=== PATIENT | male | born 1955 | race Caucasian/White ===

== ENCOUNTER 2018-05-10 23:38 | Emergency (ER) | payer MEDICARE, MEDICAID ==
[2018-05-11 00:25] LABS: ABSOLUTE BASOPHILS # (AUTO) 0.1 10^3/uL (0.0-0.2); ABSOLUTE EOSINOPHILS # (AUTO) 0.1 10^3/uL (0.0-0.6); ABSOLUTE LYMPHOCYTES (AUTO) 1.5 10^3/uL (0.5-4.7); ABSOLUTE MONOCYTES (AUTO) 0.8 10^3/uL (0.1-1.4); ABSOLUTE NEUT (AUTO) 7.9 10^3/uL (1.7-8.2); BASOPHILS % (AUTO) 0.7 % (0-2); EOSINOPHILS % (AUTO) 0.5 % (0-6); HEMATOCRIT 52.9 % (37.9-51.0); HEMOGLOBIN 18.4 g/dL (13.5-17.0); LYMPHOCYTES % (AUTO) 14.8 % (13-45); MEAN CORPUSCULAR HEMOGLOBIN 27.7 pg (27.0-33.4); MEAN CORPUSCULAR HGB CONC 34.8 g/dL (32.0-36.0); MEAN CORPUSCULAR VOLUME 80 fl (80-97); MONOCYTES % (AUTO) 7.7 % (3-13); PLATELET COUNT 288 10^3/uL (150-450); RED BLOOD COUNT 6.65 10^6/uL (4.35-5.55); RED CELL DISTRIBUTION WIDTH 14.8 % (11.5-14.0); SEGMENTED NEUTROPHILS % (AUTO) 76.3 % (42-78); TOTAL CELLS COUNTED % (AUTO) 100 %; WHITE BLOOD COUNT 10.3 10^3/uL (4.0-10.5)
[2018-05-11 00:40] LABS: ALANINE AMINOTRANSFERASE 29 U/L (21-72); ALBUMIN 4.5 g/dL (3.5-5.0); ALKALINE PHOSPHATASE 75 U/L (38-126); ANION GAP 14 (5-19); ASPARTATE AMINO TRANSFERASE 25 U/L (17-59); BILIRUBIN,DIRECT 0.5 mg/dL (0.0-0.4); BILIRUBIN,TOTAL 1.3 mg/dL (0.2-1.3); BLOOD UREA NITROGEN 20 mg/dL (7-20); CALCIUM 9.8 mg/dL (8.4-10.2); CARBON DIOXIDE 21 mmol/L (22-30); CHLORIDE 104 mmol/L (98-107); GLUCOSE 105 mg/dL (75-110); POTASSIUM 3.9 mmol/L (3.6-5.0); SODIUM 139.3 mmol/L (137-145)
[2018-05-11] MEDS ORDERED: NORMAL SALINE 1000 ML 1,000 ML IV ONE (03:48)
--- NOTE | 2018-05-11 03:54 | ER Document Report ---
ED Neuro Symptoms/Deficit - General TRAVEL OUTSIDE OF THE [place] IN LAST 30 DAYS: No <BEAU CURRAN - Last Filed: 05/11/18 08:05> <EILEENISSAC Jocelyn - Last Filed: 05/11/18 10:17> - General Chief Complaint: Tremor Stated Complaint: BODY TWITCH,CRAMPING,PAIN Time Seen by Provider: 05/11/18 03:38 Primary Care Provider: KOREY WESLEY MD [ACTIVE STAFF] - Follow up as needed Notes: Patient is a 62-year-old male that comes to the Emergency Department for w eakness of the left arm and leg. Patient states that approximately 36 hours ago he was walking back to his chair and he suddenly had a weakness in the left side of his body, he states that he collapsed against his chair without injury, he states that he could not walk, he was stuck in his chair, he states he could not open his phone because his left hand was not working properly. Eventually his sister came over to his house, found him unable to get up, and called the ambulance. He states he is starting to get a headache. He states he has not had anything to eat or drink in 36 hours. He denies chest pain, vomiting, visual changes, difficulty breathing, fever, or any pain from the fall. Past medical history of hyperlipidemia, BPH, smoker. He used to take medications for hyperlipidemia but has not for some time. He does not currently take any medications or see a primary care provider. His sister is at bedside. (BEAU CURRAN) - Related Data Allergies/Adverse Reactions: aspirin Allergy (Verified 05/10/18 23:48) Penicillins Allergy (Verified 05/10/18 23:48) Past Medical History - General Information source: Patient - Social History Smoking Status: Current Every Day Smoker Frequency of alcohol use: None Drug Abuse: None Lives with: Alone Family History: Reviewed & Not Pertinent - Past Medical History Cardiac Medical History: Reports: Hx Hypercholesterolemia <BEAU CURRAN - Last Filed: 05/11/18 08:05> Review of Systems - Review of Systems Constitutional: See HPI EENT: No symptoms reported Cardiovascular: No symptoms reported Respiratory: No symptoms reported Gastrointestinal: No symptoms reported Genitourinary: No symptoms reported Male Genitourinary: No symptoms reported Musculoskeletal: See HPI Skin: No symptoms reported Hematologic/Lymphatic: No symptoms reported Neurological/Psychological: See HPI <BEAU CURRAN - Last Filed: 05/11/18 08:05> Physical Exam <BEAU CURRAN - Last Filed: 05/11/18 08:05> - Vital signs Vitals: Temp Pulse Resp BP Pulse Ox 97.8 F 85 18 151/108 H 98 05/10/18 23:49 05/10/18 23:49 05/10/18 23:49 05/10/18 23:49 05/10/18 23:49 - Notes Notes: GENERAL: Very unkempt, however he is alert and conversational HEAD: Normocephalic, atraumatic. EYES: Pupils equal, round, and reactive to light. Extraocular movements intact. ENT: Oral mucosa dry, tongue midline. Oropharynx unremarkable. Airway patent. Nares patent, no nasal septal hematoma, TM's intact. NECK: Full range of motion. Supple. Trachea midline. LUNGS: Clear to auscultation bilaterally, no wheezes, rales, or rhonchi. No respiratory distress. HEART: Regular rate and rhythm. No murmur ABDOMEN: Soft, non-tender. Non-distended. Bowel sounds present in all 4 quadrants. GENITOURINARY: Deferred EXTREMITIES: Moves all 4 extremities spontaneously. No edema, normal radial and dorsalis pedis pulses bilaterally. No cyanosis. BACK: no cervical, thoracic, lumbar midline tenderness. No saddle anesthesia, normal distal neurovascular exam. NEUROLOGICAL: Alert and oriented x3. Normal speech. Left sided weakness including left shrimper, pronator drift, difficulty performing finger to nose exam. Difficulty holding left leg up above the bed against gravity. Right side is normal. No facial droop. No facial palsy. Remaining neurological exam is normal, cranial nerves intact. PSYCH: Normal affect, normal mood. SKIN: Warm, dry, normal turgor. No rashes or lesions noted. (BEAU CURRAN) Course - Laboratory Result Diagrams: 05/10/18 23:59 05/10/18 23:59 <BEAU CURRAN - Last Filed: 05/11/18 08:05> - Laboratory Result Diagrams: 05/10/18 23:59 05/10/18 23:59 <ISSAC ARELLANO - Last Filed: 05/11/18 10:17> - Re-evaluation Re-evalutation: Patient with obvious left-sided deficits. He cannot shrimper with his left hand, he has obvious pronator drift, difficulty holding his arm up against gravity, difficulty with finger to nose testing. He also has left lower extremity weakness, difficulty holding the leg up against gravity. He states he cannot walk, declined getting up to attempt this. He also states he has a mild headache. Patient was immediately sent to CAT scan. CBC unremarkable except for elevated hemoglobin at 18.4, chemistry nonspecific and unremarkable. Troponin negative. Patient given IV fluids because of not being able to eat or drink today reportedly. Radiologist called, reports either right parieto-occipital mass with vasogenic edema versus hematoma. Patient is not on a blood thinner, he did not have tra joselyn reportedly. Ordering dexamethasone for possible edema. Discussed with patient. Discussed with Dr. Burrows. We do not have neurosurgery at this facility. For this reason we will attempt to transfer the patient. Discussed with patient, [facility] will be contacted. 05/11/18 04:50 Called [facility] transfer center, pending call back 05/11/18 05:05 Spoke to BACILIO Liu for the ICU, recommends I speak to the neurosurgery. 05/11/18 05:[address] Foss (neurosurgery) and Michelle RIBERA from ICU, patient accepted for transfer. Accepting physician is Dr. Matias. Blood pressures 150s systolic, no additional recommendations given in regards to this. 05/11/18 08:05 Patient introduced to Abril BYRNE at bedside handoff. Patient is actually moving his left arm better than before, and he wanted to show this to us. No significant change otherwise. Transport should be here within the hour. (BEAU CURRAN) Bedside report given by LAURA Garcia. Patient evaluated at bedside is moving his left arm much better. Vitals are stable. Patient afebrile in any distress. Is awaiting for transport to [facility] by ground ambulance. Ground transport at bedside, blood pressure 150 over 90s no distress, and afebrile. Patient states left arm pain is much better. Vision is stable for transfer via ground ambulance. (ISSAC ARELLANO) - Vital Signs Vital signs: Temp Pulse Resp BP Pulse Ox 97.8 F 75 10 L 142/83 H 94 05/10/18 23:49 05/11/18 05:00 05/11/18 08:01 05/11/18 08:00 05/11/18 08:01 - Laboratory Laboratory results interpreted by me: 05/10/18 05/10/18 05/11/18 23:59 23:59 05:50 RBC 6.65 H Hgb 18.4 H Hct 52.9 H RDW 14.8 H Carbon Dioxide 21 L Direct Bilirubin 0.5 H Urine Ketones 20 H Urine Urobilinogen 4.0 H Discharge <BEAU CURRAN - Last Filed: 05/11/18 08:05> <ISSAC ARELLANO - Last Filed: 05/11/18 10:17> - Discharge Clinical Impression: Left-sided weakness, Abnormal brain CT Condition: Stable Disposition: [facility] Referrals: KOREY WESLEY MD [ACTIVE STAFF] - Follow up as needed
--- NOTE | 2018-05-11 04:34 | RADIOLOGY REPORT (SQ) ---
EXAM DESCRIPTION: CT HEAD WITHOUT IV CONTRAST COMPLETED DATE/TME: 05/11/2018 03:47 CLINICAL HISTORY: 62 years, Male, left sided weakness COMPARISON: None. TECHNIQUE: Axial CT images of the brain were obtained without contrast. Sagittal and coronal reformats were performed. DL [id number] Images stored on PACS. All CT scanners at this facility use dose modulation, iterative reconstruction, and/or weight based dosing when appropriate to reduce radiation dose to as low as reasonably achievable (ALARA). [facility]: Dose Right [facility]: CareDose [facility]: Dose Right [facility]: Teradose 4D [facility]: Smart Technologies LIMITATIONS: None. FINDINGS: There is a 1.9 cm rounded hyperdensity near the right parieto-occipital lobe with surrounding vasogenic edema. There is no midline shift, herniation, hydrocephalus, or extra-axial fluid collection. The paranasal sinuses and mastoid air cells are clear. There is no acute fracture. IMPRESSION: Hyperdense mass within the right parieto-occipital lobe with surrounding vasogenic edema. This may represent a hematoma or neoplasm. Further evaluation with an MRI with contrast is recommended. TECHNICAL DOCUMENTATION: Quality ID # 436: Final reports with documentation of one or more dose reduction techniques (e.g., Automated exposure control, adjustment of the mA and/or kV according to patient size, use of iterative reconstruction technique) copyright 2011 [employer]- All Rights Reserved
--- NOTE | 2018-05-11 04:36 | RADIOLOGY REPORT (SQ) ---
Chest single view on 05/11/2018 at 4:21 AM CLINICAL INDICATION: Left-sided weakness, stroke COMPARISON: None FINDINGS: There is trace right pleural effusion versus pleural thickening. Lungs are otherwise clear. Cardiac, hilar and mediastinal contours are within normal limits. Pulmonary vascularity is within normal limits. There is mild dextroscoliosis of the thoracic spine. No acute bony abnormality is noted. IMPRESSION: No active disease.
[2018-05-11] MEDS ORDERED: DEXAMETHASONE SOD PHOS INJ 10 MG/1 ML VIAL IV ONE ×2 (04:41→05:30)
[2018-05-11] MEDS ORDERED: ACETAMINOPHEN 325 MG TABLET PO ONE (04:51)
[2018-05-11 06:30] LABS: APPEARANCE,URINE SLIGHTLY-CLOUDY; BILIRUBIN,URINE NEGATIVE (NEGATIVE); COLOR,URINE AMBER; GLUCOSE, URINE NEGATIVE (NEGATIVE); KETONES,URINE 20 mg/dL (NEGATIVE); LEUKOCYTE ESTERASE,URINE NEGATIVE (NEGATIVE); NITRITE,URINE NEGATIVE (NEGATIVE); PROTEIN,URINE NEGATIVE (NEGATIVE); URINE SPECIFIC GRAVITY 1.028
[2018-05-11 10:25] VITALS: BP 171/101
--- NOTE | 2018-05-11 11:07 | EKG REPORT ---
SEVERITY:- ABNORMAL ECG - SINUS RHYTHM RIGHT BUNDLE BRANCH BLOCK PROBABLE INFERIOR INFARCT, OLD : Confirmed by: Carolina Acuña MD 11-May-2018 11:06:38
== END 2018-05-11 10:30 | disposition short-term general hospital (02) ==
LOC: ER 23:38
DX: R53.1 Weakness (principal); R93.0 Abnormal findings on diagnostic imaging of skull and head, not elsewhere classified; F17.200 Nicotine dependence, unspecified, uncomplicated; E78.00 Pure hypercholesterolemia, unspecified; Z88.0 Allergy status to penicillin; Z88.6 Allergy status to analgesic agent
CPT/HCPCS: 93005; 99285; 96361; 96374; 36415; 82550; 83735; 85025; 80053; 81001; 84484; 71045; 70450; 93010; A9270; J7030; J1100

== ENCOUNTER 2018-08-13 10:25 | Observation (INO) | payer MEDICARE, MEDICAID ==
[2018-08-13 11:04] LABS: HEMATOCRIT 49.1 % (37.9-51.0); HEMOGLOBIN 16.9 g/dL (13.5-17.0); MEAN CORPUSCULAR HEMOGLOBIN 27.2 pg (27.0-33.4); MEAN CORPUSCULAR HGB CONC 34.4 g/dL (32.0-36.0); MEAN CORPUSCULAR VOLUME 79 fl (80-97); PLATELET COUNT 279 10^3/uL (150-450); RED BLOOD COUNT 6.21 10^6/uL (4.35-5.55); RED CELL DISTRIBUTION WIDTH 14.7 % (11.5-14.0); WHITE BLOOD COUNT 10.1 10^3/uL (4.0-10.5)
[2018-08-13 11:06] LABS: INTERNATIONAL RATION (INR) 0.94
[2018-08-13 11:07] LABS: PARTIAL THROMBOPLASTIN TIME 41.8 SEC (23.5-35.8)
--- NOTE | 2018-08-13 11:08 | RADIOLOGY REPORT (SQ) ---
EXAM DESCRIPTION: CT HEAD WITHOUT COMPLETED DATE/TIME: 08/13/2018 10:48 am REASON FOR STUDY: Stroke Alert COMPARISON: CT brain 05/11/2018 TECHNIQUE: Axial images acquired through the brain without intravenous contrast. Images reviewed wi th bone, brain and subdural windows. Additional sagittal and coronal reconstructions were generated. Images stored on PACS. All CT scanners at this facility use dose modulation, iterative reconstruction, and/or weight based d osing when appropriate to reduce radiation dose to as low as reasonably achievable (ALARA). [facility]: Dose Right [facility]: CareDose [facility]: Dose Right [facility]: Teradose 4D [facility]: [employer] RADIATION DOSE: CT Rad equipment meets quality standard of care and radiation dose reduction techniq ues were employed. CTDIvol: 53.2 mGy. DLP: 1017 mGy-cm. mGy. LIMITATIONS: None. FINDINGS: VENTRICLES: Normal size and contour. CEREBRUM: On axial image 20, and coronal image 53-55, there is focal increased attenuation at the gra y-white junction right posterior temporal/parietal lobe with adjacent white matter low attenuation. This area measures almost 2 cm in greatest diameter. This could represent residua of old hemorrhage seen on 05/11/2018. An underlying vascular malformation or metastatic or primary brain lesion could b e present. This finding was discussed with Dr. Davila, at 1050 hours 08/13/2018. Follow-up MRI brain will be performed if possible. There is no CT evidence of acute intracranial hemorrhage, acute large territory ischemic change, mass effect, or midline shift. CEREBELLUM: No masses. No hemorrhage. No alteration of density. No evidence for acute infarction. EXTRAAXIAL SPACES: No fluid collections. No masses. ORBITS AND GLOBE: No intra- or extraconal masses. Normal contour of globe without masses. CALVARIUM: No fracture. PARANASAL SINUSES: No fluid or mucosal thickening. SOFT TISSUES: No mass or hematoma. OTHER: No other significant finding. IMPRESSION: Abnormality in the right posterior temporal/ parietal estrada-white junction with foci of i ncreased and decreased attenuation over a 2 cm diameter area. There was acute hemorrhage in this are a on 05/11/[address] Current findings could represent thrombosed vessel in the vascular malforma tion or calcification in the tiny tumor. MRI brain without and with contrast is recommended for foll owup. Findings discussed with the emergency room attending physician as above. EVIDENCE OF ACUTE STROKE: NO. COMMENT: Pertinent findings on the imaging study reported as a CRITICAL RESULT to DR DAVILA [id number] hours on 08/13/2018. Category of Critical Result: CT code stroke Quality ID # 436: Final reports with documentation of one or more dose reduction techniques (e.g., Au tomated exposure control, adjustment of the mA and/or kV according to patient size, use of iterative reconstruction technique) TECHNICAL DOCUMENTATION: JOB ID: [id number] [employer]- All Rights Reserved Reading location - IP/workstation name: [email or web address]-
--- NOTE | 2018-08-13 11:12 | RADIOLOGY REPORT (SQ) ---
EXAM DESCRIPTION: CHEST SINGLE VIEW COMPLETED DATE/TIME: 08/13/2018 11:04 am REASON FOR STUDY: bed 8 stroke alert COMPARISON: 05/11/2018 EXAM PARAMETERS: NUMBER OF VIEWS: One view. TECHNIQUE: Single frontal radiographic view of the chest acquired. RADIATION DOSE: NA LIMITATIONS: None. FINDINGS: LUNGS AND PLEURA: There is chronic blunting the right costophrenic angle. There is no inf iltrate, effusion, or mass. MEDIASTINUM AND HILAR STRUCTURES: No masses. Contour normal. HEART AND VASCULAR STRUCTURES: Heart normal in size. Normal vasculature. BONES: No acute findings. HARDWARE: None in the chest. OTHER: No other significant finding. IMPRESSION: NO ACUTE RADIOGRAPHIC FINDING IN THE CHEST. TECHNICAL DOCUMENTATION: JOB ID: [id number] [employer]- All Rights Reserved Reading location - IP/workstation name: [email or web address]
[2018-08-13 11:13] LABS: PROTHROMBIN TIME 12.6 SEC (11.4-15.4)
[2018-08-13 11:25] LABS: ALANINE AMINOTRANSFERASE 27 U/L (21-72); ALBUMIN 4.8 g/dL (3.5-5.0); ALKALINE PHOSPHATASE 108 U/L (38-126); ANION GAP 14 (5-19); ASPARTATE AMINO TRANSFERASE 27 U/L (17-59); BILIRUBIN,DIRECT 0.3 mg/dL (0.0-0.4); BLOOD UREA NITROGEN 14 mg/dL (7-20); CALCIUM 10.1 mg/dL (8.4-10.2); CARBON DIOXIDE 26 mmol/L (22-30); CHLORIDE 102 mmol/L (98-107); CREATINE KINASE 66 U/L (55-170); GLUCOSE 114 mg/dL (75-110); SODIUM 142.1 mmol/L (137-145); TOTAL PROTEIN 7.9 g/dL (6.3-8.2)
--- NOTE | 2018-08-13 11:35 | ER Document Report ---
ED Neuro Symptoms/Deficit - General Chief Complaint: S/S of Possible Stroke Stated Complaint: NUMBNESS/TINGLING LEFT SIDE OF BODY Time Seen by Provider: 08/13/18 11:13 Primary Care Provider: KIKI BECK NP [Primary Care Provider] - Follow up as needed Notes: Patient says that his head is "throbbing" intermittently over the past week. Is worse when he bends over. In addition, he has numbness of his left side which also goes and comes. He is able to walk. Patient had similar symptoms in April of this year and was told he had a stroke and was sent to [facility]. He was told there that he had a "tumor" in his brain, but did not require any treatment such as surgery or radiation. Patient denies any problems with his vision. Can move all 4 extremities. Patient denies any nausea or vomiting. Denies any neurologic deficits at this time. No problems with vision. Has not had any fever. TRAVEL OUTSIDE OF THE [place] IN LAST 30 DAYS: No - Related Data Allergies/Adverse Reactions: aspirin Allergy (Verified 08/13/18 10:27) Penicillins Allergy (Verified 08/13/18 10:27) Past Medical History - Social History Smoking Status: Unknown if Ever Smoked Family History: Reviewed & Not Pertinent Patient has suicidal ideation: No Patient has homicidal ideation: No - Past Medical History Cardiac Medical History: Reports: Hx Hypercholesterolemia Pulmonary Medical History: Reports: Hx COPD Review of Systems - Review of Systems Notes: REVIEW OF SYSTEMS: CONSTITUTIONAL : Denies fever. EENT: Denies eye, ear, nose or mouth or throat pain or other symptoms. CARDIOVASCULAR: Denies chest pain. RESPIRATORY: Denies cough, chest congestion, or shortness of breath. GASTROINTESTINAL: Denies abdominal pain or nausea, vomiting, or diarrhea. GENITOURINARY: Denies difficulty or painful urinating, urinary frequency, blood in urine. MUSCULOSKELETAL: Denies back or neck pain. Denies joint pain or swelling. SKIN: Denies rash or skin lesions. NEUROLOGICAL: Denies LOC or altered mental status. See HPI.. ALL OTHER SYSTEMS REVIEWED AND NEGATIVE. Physical Exam - Vital signs Vitals: Temp Pulse Resp BP Pulse Ox 97.7 F 82 18 122/75 96 08/13/18 10:33 08/13/18 10:33 08/13/18 10:33 08/13/18 10:33 08/13/18 10:33 Interpretation: Normal Notes: PHYSICAL EXAMINATION: GENERAL: Well-appearing, in no acute distress. Anxious. All vital signs essentially normal. HEAD: Atraumatic, normocephalic. EYES: Pupils equal round and reactive to light, extraocular movements intact. ENT: oropharynx clear without exudates. Moist mucous membranes. NECK: Normal range of motion, supple. No carotid bruits heard. LUNGS: Breath sounds clear and equal bilaterally. HEART: Regular rate and rhythm without murmurs. ABDOMEN: Soft, nontender. No guarding or rebound. No masses. BACK: No tenderness throughout entire back. EXTREMITIES: Normal range of motion without pain. NEUROLOGICAL: Normal speech, normal gait. Is able to get out of the bed and walk. Normal sensory, motor, and reflex exams. oriented x3. PSYCH: Normal mood, normal affect. SKIN: Warm, dry, no rashes. Course - Vital Signs Vital signs: Temp Pulse Resp BP Pulse Ox 97.7 F 73 22 H 127/98 H 95 08/13/18 10:33 08/13/18 11:03 08/13/18 11:03 08/13/18 11:03 08/13/18 11:03 - Laboratory Result Diagrams: 08/13/18 10:52 08/13/18 10:52 Laboratory results interpreted by me: 08/13/18 10:52 APTT 41.8 H - Diagnostic Test Radiology reviewed: Image reviewed, Reports reviewed - CT scan of the brain shows some abnormality in the right parietal brain. It appears similar to what was on a previous study here. MRI of the brain was done and shows hemorrhagic staining from brain parenchyma hemorrhage on May 11 of this year. No MRI findings to suggest occult cerebrovascular malformation or tumor. Everything seen on MRI is "old" Radiology results interpreted by me: 08/13/18 15:42 Chest rate essentially normal. No acute findings. - EKG Interpretation by In EKG shows normal: Sinus rhythm Rate: Normal Rhythm: PVC's [place]/QRS: RBBB Discharge - Discharge Clinical Impression: TIA (transient ischemic attack) Condition: Stable Disposition: ADMITTED OBSERVATION Admitting Provider: [place] [facility] Admitted: Telemetry Referrals: KIKI BECK NP [Primary Care Provider] - Follow up as needed
[2018-08-13 11:37] LABS: ABSOLUTE LYMPHOCYTES# (MANUAL) 1.3 10^3/uL (0.5-4.7); ABSOLUTE MONOCYTES # (MANUAL) 0.3 10^3/uL (0.1-1.4); BASOPHILS % (MANUAL) 0 % (0-2); EOSINOPHILS % (MANUAL) 5 % (0-6); LYMPHOCYTES % (MANUAL) 6 % (13-45); MONOCYTES % (MANUAL) 3 % (3-13); NUCLEATED RED BLOOD CELLS 1 /100 WBC (0); SEGMENTED NEUTROPHILS % (MAN) 79 % (42-78); TOTAL CELLS COUNTED 100
[2018-08-13 11:39] LABS: CREATINE KINASE MB 0.72 ng/mL (<4.55)
[2018-08-13 11:40] LABS: TROPONIN I < 0.012 ng/mL
[2018-08-13 11:44] LABS: PLATELET COMMENT ADEQUATE; POIKILOCYTOSIS SLIGHT; TEAR DROP CELLS SLIGHT
--- NOTE | 2018-08-13 13:18 | RADIOLOGY REPORT (SQ) ---
EXAM DESCRIPTION: MRI HEAD COMBO COMPLETED DATE/TIME: 08/13/2018 1:01 pm REASON FOR STUDY: Possible stroke. Ab right parietal area on CT COMPARISON: CT brain 08/13/2018, 05/11/2018 TECHNIQUE: Multiplanar imaging includes noncontrasted T1, T2, FLAIR, diffusion with ADC map and post gadolinium contrast T1 sequences. Images stored on PACS. CONTRAST TYPE AND DOSE: 15 mL Dotarem. RENAL FUNCTION: Not indicated. ACR Type II contrast agent associated with few, if any, unconfounded cases of NSF LIMITATIONS: None. FINDINGS: ANATOMY: Normal vascular flow voids. Pituitary fossa normal. CSF SPACES: Normal in size and contour. No hemorrhage. CEREBRUM: In the right posterior temporal/ parietal estrada-white junction, and old parenchymal hemorrha ge is evident, with hemosiderin staining and surrounding gliosis. Central bright T1 and T2 signal fr om extracellular methemoglobin, peripheral rim of dark T1 and dark T2 signal from hemosiderin. Minim al surrounding gliosis. No contrast enhancement. No feeding or draining vessels. No mass effect. At its widest, this involves an area about 2 x 2.5 cm in size. This likely represents sequela of the patient's acute brain parenchymal hemorrhage on CT exam 05/11/2018. Remainder of the cerebral hemispheres are otherwise unremarkable aside from few tiny foci of increase d FLAIR/T2 signal over the convexities along perivascular spaces, benign. Post-contrast, no abnormal brain parenchymal enhancement is identified. POSTERIOR FOSSA: No signal alteration. No hemorrhage. No edema, masses, or mass effect. Internal esmer tory canals, cerebellopontine angles, mastoids normal. No enhancing lesions. No abnormal enhancement post contrast. DIFFUSION IMAGING: Negative for acute or subacute infarction. ORBITS: No masses. Globes normal. PARANASAL SINUSES: No fluid levels. Mucosa normal. OTHER: No other significant finding. IMPRESSION: Right posterior temporal/parietal region hemorrhagic staining from brain parenchymal hem orrhage seen on CT exam 05/11/2018. No MR findings to suggest occult cerebrovascular malformation or tumor. Hemorrhage could be sequela from INSULATION ESTIMATOR vasculitis. No acute brain parenchymal findings today. EVIDENCE OF ACUTE STROKE: NO. TECHNICAL DOCUMENTATION: JOB ID: [id number]- All Rights Reserved Reading location - IP/workstation name: [email or web address]
[2018-08-13] MEDS ORDERED: ACETAMINOPHEN 325 MG TABLET PO PRN (17:09)
[2018-08-13] MEDS ORDERED: TRAMADOL HCL 50 MG TABLET PO PRN (17:09)
[2018-08-13] MEDS ORDERED: ONDANSETRON HCL INJ/PF 4 MG/2 ML SDV IV PRN (17:09)
[2018-08-13] MEDS ORDERED: DOCUSATE SODIUM 100 MG CAPSULE PO PRN (17:09)
[2018-08-13] MEDS ORDERED: MAGNESIUM HYDROXIDE SUSP 30 ML UDCUP PO PRN (17:09)
[2018-08-13] MEDS ORDERED: HYDRALAZINE HCL INJ/PF 20 MG/1 ML SDV IV PRN (17:30)
--- NOTE | 2018-08-13 17:31 | PDOC H&P ---
History of Present Illness Admission Date/PCP: 08/13/18 16:03 KIKI BECK NP Patient complains of: Left side weakness History of Present Illness: LEEANN BERRY is a 63 year old male with a past medical history of CVA (April 2018), hypertension, hyperlipidemia, COPD, prostate cancer who recently stopped smoking (April 2018) who presents to the emergency department with sudden onset of worsening left-sided weakness. Patient reports that he has residual left upper and lower extremity weakness from his prior stroke however today at physical therapy he noted lower leg cramping and worsening symptoms. Throughout the exam he is noted to be gesturing with his left arm extensively, however, when asked to straight arm lift and to straight line edger he reports weakness and is unable to lift the arm above the bed. Evaluation in the emergency department is essentially unremarkable regarding CBC, coag studies, and chemistry. CRP and sed rate are pending. Head CT and brain MRI reveal Right posterior temporal/parietal region hemorrhagic staining from brain parenchymal hemorrhage seen on CT exam 05/11/2018. No MR findings to suggest occult cerebrovascular malformation or tumor. 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 No acute brain findings today. He is referred to the hospitalist service for admission and management of the above-stated complaints and findings. Past Medical History Cardiac Medical History: Reports: Hyperlipidema, Hypertension Denies: Congestive Heart Failure, Myocardial Infarction Pulmonary Medical History: Reports: Chronic Obstructive Pulmonary Disease (COPD) EENT Medical History: Reports: None Neurological Medical History: Reports: Ischemic CVA Denies: Migraine Endocrine Medical History: Reports: None Renal/ Medical History: Reports: None Malignancy Medical History: Reports: Other - Prostate GI Medical History: Reports: None Musculoskeltal Medical History: Reports: None Skin Medical History: Reports: None Psychiatric Medical History: Reports: Depression Traumatic Medical History: Reports: None Hematology: Reports: None Infectious Medical History: Reports: None Past Surgical History Past Surgical History: Reports: Orthopedic Surgery - Knee Social History Information Source: Patient Lives with: Alone Smoking Status: Former Smoker Last Time Smoked: 04/2018 Frequency of Alcohol Use: None Hx Recreational Drug Use: No Drugs: None Hx Prescription Drug Abuse: No - Advance Directive Resuscitation Status: Do Not Resuscitate Surrogate healthcare decision maker:: The patient's sister, Bea Josue Family History Family History: Reviewed & Not Pertinent, Arthritis, COPD, CVA, DM, Hyperlipidemia, Hypertension Parental Family History Reviewed: Yes Children Family History Reviewed: Yes Sibling(s) Family History Reviewed.: Yes Medication/Allergy Home Medications: Amlodipine Besylate [Norvasc 10 mg Tablet] 10 mg PO DAILY 08/13/18 Atorvastatin Calcium [Lipitor 20 mg Tablet] 20 mg PO QHS 08/13/18 Ergocalciferol (Vitamin D2) [Drisdol 50,000 unit (1.25MG) Capsule] 50,000 unit PO .QWEEKLY 08/13/18 Fluoxetine HCl [Prozac] 20 mg PO DAILY 08/13/18 Ipratropium [place] [Atrovent Hfa Inhalation Aerosol 12.9 gm Mdi] 2 puff IH Q6 08/13/18 Multivitamin [Tab-A-Dharmesh (Multiple Vitamin) Tablet] 1 tab PO DAILY 08/13/18 Thiamine HCl [Thiamine 100 mg Tablet] 100 mg PO DAILY 08/13/18 Allergies/Adverse Reactions: aspirin Allergy (Verified 08/13/18 10:27) Penicillins Allergy (Verified 08/13/18 10:27) Review of Systems Constitutional: PRESENT: headache(s). ABSENT: chills, fever(s), weight gain, weight loss Eyes: ABSENT: visual disturbances Ears: ABSENT: hearing changes Cardiovascular: ABSENT: chest pain, dyspnea on exertion, edema, orthropnea, palpitations Respiratory: ABSENT: cough, hemoptysis Gastrointestinal: ABSENT: abdominal pain, constipation, diarrhea, hematemesis, hematochezia, nausea, vomiting Genitourinary: ABSENT: dysuria, hematuria Musculoskeletal: ABSENT: joint swelling Integumentary: ABSENT: rash, wounds Neurological: PRESENT: focal weakness, paresthesias. ABSENT: abnormal gait, abnormal speech, confusion, dizziness, syncope Psychiatric: ABSENT: anxiety, depression, homidical ideation, suicidal ideation Endocrine: ABSENT: cold intolerance, heat intolerance, polydipsia, polyuria Hematologic/Lymphatic: ABSENT: easy bleeding, easy bruising Physical Exam Vital Signs: Temp Pulse Resp BP Pulse Ox 97.7 F 73 24 H 152/91 H 97 08/13/18 10:33 08/13/18 11:03 08/13/18 17:00 08/13/18 15:52 08/13/18 17:00 Intake & Output 08/12/18 08/13/18 08/14/18 06:59 06:59 06:59 Weight 81.5 kg General appearance: PRESENT: no acute distress, disheveled - Long fingernails, caked dirt to palms of hands, well-developed, well-nourished - Overweight Head exam: PRESENT: atraumatic, normocephalic Eye exam: PRESENT: conjunctiva pink, EOMI, PERRLA. ABSENT: scleral icterus Ear exam: PRESENT: normal external ear exam Mouth exam: PRESENT: moist, tongue midline Neck exam: ABSENT: carotid bruit, JVD, lymphadenopathy, thyromegaly Respiratory exam: PRESENT: clear to auscultation bala, symmetrical, unlabored. ABSENT: rales, rhonchi, wheezes Cardiovascular exam: PRESENT: RRR, +S1, +S2. ABSENT: diastolic murmur, rubs, systolic murmur Pulses: PRESENT: normal dorsalis pedis pul Vascular exam: PRESENT: normal capillary refill GI/Abdominal exam: PRESENT: normal bowel sounds, soft. ABSENT: distended, guarding, mass, organolmegaly, rebound, tenderness Rectal exam: PRESENT: deferred Extremities exam: PRESENT: full ROM. ABSENT: calf tenderness, clubbing, pedal edema Neurological exam: PRESENT: alert, awake, oriented to person, oriented to place, oriented to time, oriented to situation, CN II-XII grossly intact, other - A&O x4, no facial asymmetry or slurred speech noted. Left straight line edger 2/5, right straight line edger 5/5, left leg dorsiflexion 0/5, right dorsiflexion 5/5; patient reports baseline weakness to left side though increased today. Inconsistent findings.. ABSENT: motor sensory deficit Psychiatric exam: PRESENT: appropriate affect, normal mood. ABSENT: homicidal ideation, suicidal ideation Skin exam: PRESENT: dry, intact, warm. ABSENT: cyanosis, rash Results Laboratory Results: 08/13/18 10:52 08/13/18 10:52 08/13/18 08/13/18 10:52 10:52 WBC 10.1 RBC 6.21 H Hgb 16.9 Hct 49.1 MCV 79 L MCH 27.2 MCHC 34.4 RDW 14.7 H Plt Count 279 Seg Neutrophils % Not Reportable Lymphocytes % Not Reportable Monocytes % Not Reportable Eosinophils % Not Reportable Basophils % Not Reportable Absolute Neutrophils Not Reportable Absolute Lymphocytes Not Reportable Absolute Monocytes Not Reportable Absolute Eosinophils Not Reportable Absolute Basophils Not Reportable Sodium 142.1 Potassium 4.0 Chloride 102 Carbon Dioxide 26 Anion Gap 14 BUN 14 Creatinine 1.22 Est GFR ( Amer) > 60 Est GFR (Non-Af Amer) > 60 Glucose 114 H Calcium 10.1 Total Bilirubin 1.0 AST 27 ALT 27 Alkaline Phosphatase 108 Total Protein 7.9 Albumin 4.8 08/13/18 08/13/18 10:52 10:52 Creatine Kinase 66 CK-MB (CK-2) 0.72 Troponin I < 0.012 Impressions: Head CT 08/13/18 00:00 IMPRESSION: Abnormality in the right posterior temporal/ parietal estrada-white junction with foci of increased and decreased attenuation over a 2 cm diameter area. There was acute hemorrhage in this area on 05/11/[address] Current findings could represent thrombosed vessel in the vascular malformation or calcification in the tiny tumor. MRI brain without and with contrast is juan mmended for followup. Findings discussed with the emergency room attending physician as above. EVIDENCE OF ACUTE STROKE: NO. Chest X-Ray 08/13/18 10:44 IMPRESSION: NO ACUTE RADIOGRAPHIC FINDING IN THE CHEST. Head MRI 08/13/18 11:30 IMPRESSION: Right posterior temporal/parietal region hemorrhagic staining from brain parenchymal hemorrhage seen on CT exam 05/11/2018. No MR findings to suggest occult cerebrovascular malformation or tumor. 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 No acute brain parenchymal findings today. EVIDENCE OF ACUTE STROKE: NO. Assessment and Plan - Diagnosis (1) TIA (transient ischemic attack) Is this a current diagnosis for this admission?: Yes Plan: Patient presents with acute worsening of left-sided weakness from baseline related to prior CVA. Inconsistent exam between providers and nursing staff. Patient noted to be gesturing with his left arm throughout our discussion but then had minimal strength during exam. CT and MRI findings are negative for acute CVA. Brain MRI ight posterior temporal/parietal region hemorrhagic staining from brain parenchymal hemorrhage seen on CT exam 05/11/2018. No MR findings to suggest occult cerebrovascular malformation or tumor. 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 No acute brain findings today. [place] [facility] [place] We will request echocardiogram and carotid Dopplers/neck CTA results from [facility] April 2018. Will obtain sed rate and CRP to assess for vasculitis. We will risk stratify with TSH, lipid panel, and A1c with a.m. lab work. PT/OT consultations requested. Discharge planning is consulted. (2) History of CVA (cerebrovascular accident) Is this a current diagnosis for this admission?: Yes Plan: Resulting in left-sided weakness. Evaluation and management of TIA symptoms as above. (3) Hypertension Qualifiers: Hypertension type: essential hypertension Qualified Code(s): I10 - Essential (primary) hypertension Is this a current diagnosis for this admission?: Yes Plan: Patient is noted to have elevated blood pressures today of 152/91. He is placed on a cardiac diet. We will continue home dose amlodipine. Consider addition of lisinopril. IV hydralazine as needed for blood pressure control. (4) Hyperlipidemia Is this a current diagnosis for this admission?: Yes Plan: We will obtain lipid panel with a.m. lab work. Cardiac diet. Continue home dose atorvastatin. (5) COPD (chronic obstructive pulmonary disease) Qualifiers: COPD type: unspecified COPD Qualified Code(s): J44.9 - Chronic obstructive pulmonary disease, unspecified Is this a current diagnosis for this admission?: Yes Plan: Stable and without exacerbation at this time. As needed nebulizer treatments are available. - Time Time Spent with patient: 35 or more minutes Medications reviewed and adjusted accordingly: Yes Anticipated discharge: Home Within: within 24 hours
--- NOTE | 2018-08-13 17:58 | EKG REPORT ---
SEVERITY:- ABNORMAL ECG - SINUS RHYTHM VENTRICULAR PREMATURE COMPLEX RIGHT BUNDLE BRANCH BLOCK PROBABLE INFERIOR INFARCT, OLD : Confirmed by: Annel Garcia 13-Aug-2018 17:56:28
[2018-08-13] MEDS ORDERED: IPRATROPIUM BROMIDE HFA 17 MCG/PUFF 200 PUFF/12.9 GM MDI IH SCH (18:00)
[2018-08-13] MEDS: FAMOTIDINE INJ/PF 20 MG/2 ML SDV IV SCH (21:17)
[2018-08-13] MEDS: HEPARIN SOD (PORCINE) 5,000 UNIT/ML 1 ML SYRINGE SUBCUT SCH (21:17)
[2018-08-13] MEDS ORDERED: ATORVASTATIN CALCIUM 20 MG TABLET PO SCH ×2 (22:00)
[2018-08-14] MEDS: HEPARIN SOD (PORCINE) 5,000 UNIT/ML 1 ML SYRINGE SUBCUT SCH ×2 (05:16→13:26)
[2018-08-14 05:26] LABS: HEMATOCRIT 43.3 % (37.9-51.0); HEMOGLOBIN 14.9 g/dL (13.5-17.0); MEAN CORPUSCULAR HEMOGLOBIN 27.2 pg (27.0-33.4); MEAN CORPUSCULAR HGB CONC 34.3 g/dL (32.0-36.0); MEAN CORPUSCULAR VOLUME 79 fl (80-97); PLATELET COUNT 196 10^3/uL (150-450); RED BLOOD COUNT 5.46 10^6/uL (4.35-5.55); RED CELL DISTRIBUTION WIDTH 14.6 % (11.5-14.0)
[2018-08-14 05:44] LABS: ALANINE AMINOTRANSFERASE 27 U/L (21-72); ALBUMIN 3.8 g/dL (3.5-5.0); ALKALINE PHOSPHATASE 91 U/L (38-126); ANION GAP 9 (5-19); ASPARTATE AMINO TRANSFERASE 24 U/L (17-59); BILIRUBIN,DIRECT 0.2 mg/dL (0.0-0.4); BLOOD UREA NITROGEN 16 mg/dL (7-20); CALCIUM 9.3 mg/dL (8.4-10.2); CARBON DIOXIDE 27 mmol/L (22-30); CHLORIDE 104 mmol/L (98-107); CHOLESTEROL 117.42 mg/dL (0-200); GLUCOSE 83 mg/dL (75-110); POTASSIUM 3.7 mmol/L (3.6-5.0); SODIUM 140.4 mmol/L (137-145); TOTAL PROTEIN 6.5 g/dL (6.3-8.2); TRIGLYCERIDES 117 mg/dL (<150)
[2018-08-14 05:55] LABS: DIRECT LDL 60 mg/dL (<100)
[2018-08-14 09:24] VITALS: BP 149/87
[2018-08-14] MEDS ORDERED: CLOPIDOGREL BISULFATE 75 MG TABLET PO SCH (10:00)
[2018-08-14] MEDS ORDERED: (PENDING PHARMACY ID) (Fluoxetine Hcl [Prozac] 20 MG) PO SCH (10:00)
[2018-08-14] MEDS ORDERED: MULTIVITAMIN TABLET PO SCH (10:00)
[2018-08-14] MEDS ORDERED: THIAMINE HCL 100 MG TABLET PO SCH (10:00)
[2018-08-14] MEDS ORDERED: AMLODIPINE BESYLATE 10 MG TABLET PO SCH (10:00)
[2018-08-14] MEDS ORDERED: FLUOXETINE HCL 20 MG CAPSULE PO SCH (10:00)
[2018-08-14] MEDS: FAMOTIDINE INJ/PF 20 MG/2 ML SDV IV SCH (10:40)
--- NOTE | 2018-08-14 11:02 | RADIOLOGY REPORT (SQ) ---
EXAM DESCRIPTION: CAROTID DOPPLER COMPLETED DATE/TIME: 08/14/2018 10:38 am REASON FOR STUDY: TIA D64.9 ANEMIA, UNSPECIFIED R73.9 HYPERGLYCEMIA, UNSPECIFIED E78.5 HYPERLIPID EMIA, UNSPECIFIED COMPARISON: CT brain 05/11/2018, 08/13/2018 MRI brain 08/13/2018 TECHNIQUE: Grayscale ultrasound, Doppler velocity and spectra, and color Doppler images acquired of the extra-cranial carotid and vertebral arteries. Images stored on PACS. LIMITATIONS: None. FINDINGS: RIGHT CAROTID CCA Velocities: Within normal limits. Right common carotid artery peak systolic velocity 0.59 m/sec ICA Velocities Peak systolic 0.51 m/s. End diastolic 0.15 m/s. Proximal ICA/CCA peak systolic ratio 1.5. Spectra normal. No significant plaque. LEFT CAROTID CCA Velocities: Within normal limits. Left common carotid artery peak systolic velocity 0.5 m/sec ICA Velocities Peak systolic 0.43 m/s. End diastolic 0.15 m/s. Proximal ICA/CCA peak systolic ratio 1.5. Spectra normal. No significant plaque. VERTEBRAL ARTERIES: Antegrade flow. Normal waveforms. SUBCLAVIAN ARTERIES: Not evaluated OTHER: No other significant finding. IMPRESSION: NO HEMODYNAMICALLY SIGNIFICANT STENOSIS. COMMENT: Quality ID #[id number]: Velocity criteria are extrapolated from the diameter data as defined by t he Society of Radiologists in Ultrasound Consensus Conference. Radiology 2003: 229; 340-346. TECHNICAL DOCUMENTATION: JOB ID: [id number] [employer]- All Rights Reserved Reading location - IP/workstation name: [email or web address]
--- NOTE | 2018-08-17 18:37 | PDOC DISCHARGE SUMMARY ---
General - Admit/Disc Date/PCP Admission Date/Primary Care Provider: 08/13/18 16:03 KIKI BECK NP Discharge Date: 08/14/18 - Discharge Diagnosis (1) TIA (transient ischemic attack) Is this a current diagnosis for this admission?: Yes Summary: Patient presented with acute worsening of left-sided weakness from baseline related to prior CVA. Inconsistent exam between providers and nursing staff. Patient noted to be gesturing with his left arm throughout our discussion but then had minimal strength during exam. CT and MRI findings are negative for acute CVA. Brain MRI ight posterior temporal/parietal region hemorrhagic staining from brain parenchymal hemorrhage seen on CT exam 05/11/2018. No MR findings to suggest occult cerebrovascular malformation or tumor. Hemorrhage could be sequela from C[employer] REPRESENTATIVE vasculitis. No acute brain findings today. Sed Rate and CRP minimally elevated; not clinically significant and do not indicate vasculitis. TSH nml Lipid panel acceptable A1c 5.0% Carotid Doppler was negative for hemodynamically significant stenosis. Records obtained from [facility] admission 04/2018 for CVA; echocardiogram report was reassuring. No indication to repeat at this time. Patient was admitted to [facility] on continuous cardiac telemetry; symptoms improved overnight and the patient reports that he is not at his baseline function. PT/OT consultations requested. Patient was able to ambulate presently 50 feet with frontwheel walker and minimal assistance. Patient is discharged home in stable condition with home health nursing, physical therapy and occupational services. He is advised to follow-up with his primary care provider within 1 week. He is instructed to take his medications as prescribed. He is encouraged to return to the emergency department as needed for any concerning symptoms. (2) History of CVA (cerebrovascular accident) Is this a current diagnosis for this admission?: Yes Summary: Resulting in left-sided weakness. Evaluation and management of TIA symptoms as above Have arranged for the patient to receive home health nursing, physical therapy, and occupational therapy services. (3) Hypertension Is this a current diagnosis for this admission?: Yes Summary: Recommend continuing cardiac diet and home dose amlodipine. (4) Hyperlipidemia Is this a current diagnosis for this admission?: Yes Summary: Lipid panel is acceptable. Recommend patient continue cardiac diet and home dose atorvastatin. (5) COPD (chronic obstructive pulmonary disease) Is this a current diagnosis for this admission?: Yes Summary: Stable and without exacerbation. - Additional Information Resuscitation Status: Do Not Resuscitate Discharge Diet: Cardiac Discharge Activity: Activity As Tolerated, Balance Activity w/Rest, Slowly Increase Activity Prescriptions: Clopidogrel Bisulfate [Plavix 75 mg Tablet] 75 mg PO DAILY #30 tablet Home Medications: Amlodipine Besylate [Norvasc 10 mg Tablet] 10 mg PO DAILY 08/13/18 Atorvastatin Calcium [Lipitor 20 mg Tablet] 20 mg PO QHS 08/13/18 Cyanocobalamin (Vitamin B-12) [Vitamin B-12 1000 mcg Tablet] 1,000 mcg PO DAILY 08/13/18 Ergocalciferol (Vitamin D2) [Drisdol 50,000 unit (1.25MG) Capsule] 50,000 unit PO MO@1000 08/13/18 Fluoxetine HCl [Prozac] 20 mg PO DAILY 08/13/18 Multivitamin [Tab-A-Dharmesh (Multiple Vitamin) Tablet] 1 tab PO DAILY 08/13/18 [place]-3S/Dha/Epa/Fish Oil [Fish Oil [place]-3 Softgel] 1 each PO DAILY 08/13/18 Thiamine HCl [Thiamine 100 mg Tablet] 100 mg PO DAILY 08/13/18 Acetaminophen [Tylenol 325 mg Tablet] 650 mg PO Q4HP PRN tablet 08/14/18 Clopidogrel Bisulfate [Plavix 75 mg Tablet] 75 mg PO DAILY #30 tablet 08/14/18 Docusate Sodium [Colace 100 mg Capsule] 100 mg PO BIDP PRN capsule 08/14/18 History of Present Illness History of Present Illness: LEEANN BERRY is a 63 year old male with a past medical history of CVA (April 2018), hypertension, hyperlipidemia, COPD, prostate cancer who recently stopped smoking (April 2018) who presents to the emergency department with sudden onset of worsening left-sided weakness. Patient reports that he has residual left upper and lower extremity weakness from his prior stroke however today at physical therapy he noted lower leg cramping and worsening symptoms. Throughout the exam he is noted to be gesturing with his left arm extensively, however, when asked to straight arm lift and to stone cleaner he reports weakness and is unable to lift the arm above the bed. Evaluation in the emergency department is essentially unremarkable regarding CBC, coag studies, and chemistry. CRP and sed rate are pending. Head CT and brain MRI reveal Right posterior temporal/parietal region hemorrhagic staining from brain parenchymal hemorrhage seen on CT exam 05/11/2018. No MR findings to suggest occult cerebrovascular malformation or tumor. Hemorrhage could be sequela from C[employer] REPRESENTATIVE vasculitis. No acute brain findings today. He is referred to the hospitalist service for admission and management of the above-stated complaints and findings. Physical Exam Vital Signs: Temp Pulse Resp BP Pulse Ox 97.4 F 53 L 16 149/87 H 99 08/14/18 08:00 08/14/18 08:00 08/14/18 08:00 08/14/18 08:00 08/14/18 08:00 Intake & Output 08/13/18 08/14/18 08/15/18 06:59 06:59 06:59 Intake Total 610 Output Total 250 Balance 360 Weight 80.9 kg General appearance: PRESENT: no acute distress, disheveled, well-developed, well-nourished - Overweight Head exam: PRESENT: atraumatic, normocephalic Eye exam: PRESENT: conjunctiva pink, EOMI, PERRLA. ABSENT: scleral icterus Ear exam: PRESENT: normal external ear exam Mouth exam: PRESENT: moist, tongue midline Neck exam: ABSENT: carotid bruit, JVD, lymphadenopathy, thyromegaly Respiratory exam: PRESENT: clear to auscultation bala. ABSENT: rales, rhonchi, wheezes Cardiovascular exam: PRESENT: RRR. ABSENT: diastolic murmur, rubs, systolic murmur Pulses: PRESENT: normal dorsalis pedis pul Vascular exam: PRESENT: normal capillary refill GI/Abdominal exam: PRESENT: normal bowel sounds, soft. ABSENT: distended, guarding, mass, organolmegaly, rebound, tenderness Rectal exam: PRESENT: deferred Extremities exam: PRESENT: full ROM. ABSENT: calf tenderness, clubbing, pedal edema Musculoskeletal exam: PRESENT: ambulatory - Ambulatory 50 feet with front wheel walker Neurological exam: PRESENT: alert, awake, oriented to person, oriented to place, oriented to time, oriented to situation, CN II-XII grossly intact, other - &O x4, no facial asymmetry or slurred speech noted. Left stone cleaner 2/5, right stone cleaner 5/5, left leg dorsiflexion 0/5, right dorsiflexion 5/5; patient reports baseline weakness. ABSENT: motor sensory deficit Psychiatric exam: PRESENT: appropriate affect, normal mood. ABSENT: homicidal ideation, suicidal ideation Skin exam: PRESENT: dry, intact, warm. ABSENT: cyanosis, rash Results Laboratory Results: 08/14/18 04:59 08/14/18 04:59 08/13/18 08/14/18 08/14/18 17:00 04:59 04:59 WBC 7.0 RBC 5.46 Hgb 14.9 Hct 43.3 MCV 79 L MCH 27.2 MCHC 34.3 RDW 14.6 H Plt Count 196 Sodium 140.4 Potassium 3.7 Chloride 104 Carbon Dioxide 27 Anion Gap 9 BUN 16 Creatinine 0.91 Est GFR ( Amer) > 60 Est GFR (Non-Af Amer) > 60 Glucose 83 Calcium 9.3 Total Bilirubin 1.0 AST 24 ALT 27 Alkaline Phosphatase 91 C-Reactive Protein 15.4 H Total Protein 6.5 Albumin 3.8 Triglycerides 117 Cholesterol 117.42 LDL Cholesterol Direct 60 VLDL Cholesterol 23.0 HDL Cholesterol 37 L 08/13/18 08/13/18 10:52 10:52 Creatine Kinase 66 CK-MB (CK-2) 0.72 Troponin I < 0.012 Impressions: Head CT 08/13/18 00:00 IMPRESSION: Abnormality in the right posterior temporal/ parietal estrada-white junction with foci of increased and decreased attenuation over a 2 cm diameter area. There was acute hemorrhage in this area on 05/11/[address] Current findings could represent thrombosed vessel in the vascular malformation or calcification in the tiny tumor. MRI brain without and with contrast is recommended for followup. Findings discussed with the emergency room attending physician as above. EVIDENCE OF ACUTE STROKE: NO. Chest X-Ray 08/13/18 10:44 IMPRESSION: NO ACUTE RADIOGRAPHIC FINDING IN THE CHEST. Head MRI 08/13/18 11:30 IMPRESSION: Right posterior temporal/parietal region hemorrhagic staining from brain parenchymal hemorrhage seen on CT exam 05/11/2018. No MR findings to suggest occult cerebrovascular malformation or tumor. Hemorrhage could be sequela from CASH AP[employer]S REPRESENTATIVE vasculitis. No acute brain parenchymal findings today. EVIDENCE OF ACUTE STROKE: NO. Carotid Doppler Study 08/14/18 00:00 IMPRESSION: NO HEMODYNAMICALLY SIGNIFICANT STENOSIS. Qualifiers - * PATIENT BEING DISCHARGED WITH ANY OF THE FOLLOWING DIAGNOSIS: No Acute Heart Failure - Is this a Heart Failure Patient?: No Plan Discharge Plan: Patient is discharged home in stable condition with home health nursing, physical therapy, and occupational therapy services. Follow up with primary care provider within 1 week. Take your medications as prescribed. Return to the emergency department as needed for concerning symptoms. Time Spent: Greater than 30 Minutes
[2018-08-18] MEDS ORDERED: ERGOCALCIFEROL (VITAMIN D2) 50000 UNIT (1.25 MG) CAPSULE PO SCH (10:00)
== END 2018-08-14 15:45 | disposition home or self-care (01) ==
LOC: ER 10:25 → EH 16:03 → 3W 17:32
PROVIDERS: ADMIT Internal Medicine; ATTEND Internal Medicine
DX: G45.9 Transient cerebral ischemic attack, unspecified (principal); I69.354 Hemiplegia and hemiparesis following cerebral infarction affecting left non-dominant side; I10 Essential (primary) hypertension; E78.5 Hyperlipidemia, unspecified; J44.9 Chronic obstructive pulmonary disease, unspecified; R25.2 Cramp and spasm; F32.9 Major depressive disorder, single episode, unspecified; I45.10 Unspecified right bundle-branch block; I49.3 Ventricular premature depolarization; Z66 Do not resuscitate; Z79.899 Other long term (current) drug therapy; Z79.02 Long term (current) use of antithrombotics/antiplatelets; Z87.891 Personal history of nicotine dependence; Z85.46 Personal history of malignant neoplasm of prostate; Z60.2 Problems related to living alone; Z82.3 Family history of stroke; Z82.49 Family history of ischemic heart disease and other diseases of the circulatory system
CPT/HCPCS: 93005; 99285; 36415 ×2; 82553; 82550; 85025; 85027; 85652; 85610; 85730; 86140; 80053 ×2; 84484; 83036; 80061; 93880; 70553; 71045; 70450; 93010; 97530; 97162; G0378 ×2; A9576; A9270 ×6; J1644 ×2; J3490 ×2; S0028 ×2

== ENCOUNTER 2018-11-18 17:44 | Emergency (ER) | payer MEDICARE, MEDICAID ==
--- NOTE | 2018-11-18 18:38 | ER Document Report ---
ED General - General Chief Complaint: Weakness Stated Complaint: WEAKNESS Time Seen by Provider: 11/18/18 17:52 Primary Care Provider: KIKI BECK NP [Primary Care Provider] - Follow up as needed Notes: 63-year-old male presents emergency department stating that around 1630 this afternoon he started feeling like his INR stroke. Patient states that he developed left-sided numbness as well as a sharp stabbing poking sensation in his left hand and that his left hand weakness got worse. Denies any blurry vision, admits headache. Denies any trauma. Patient states this feels similar to when he had a stroke last April and when he had a TIA in August. Patient has no details about what type of a stroke he had or how it was treated. Thinks he was given blood thinners. Takes Plavix, denies recent trauma or surgery. TRAVEL OUTSIDE OF THE [place] IN LAST 30 DAYS: No - Related Data Allergies/Adverse Reactions: aspirin Allergy (Verified 08/13/18 10:27) Penicillins Allergy (Verified 08/13/18 10:27) Past Medical History - General Information source: Patient - Social History Smoking Status: Former Smoker Frequency of alcohol use: None Drug Abuse: None Family History: Reviewed & Not Pertinent - Past Medical History Cardiac Medical History: Reports: Hx Hypercholesterolemia, Hx Hypertension Denies: Hx Congestive Heart Failure, Hx Heart Attack Pulmonary Medical History: Reports: Hx COPD Neurological Medical History: Denies: Hx Migraine Renal/ Medical History: Denies: Hx Peritoneal Dialysis Psychiatric Medical History: Reports: Hx Depression Past Surgical History: Reports: Hx Orthopedic Surgery - Knee Review of Systems - Review of Systems Cardiovascular: No symptoms reported Musculoskeletal: See HPI Neurological/Psychological: See HPI -: Yes All other systems reviewed and negative Physical Exam - Vital signs Vitals: Pulse Resp BP Pulse Ox 91 16 142/77 H 95 11/18/18 18:00 11/18/18 18:00 11/18/18 18:00 11/18/18 18:00 - Notes Notes: GENERAL: Alert, slightly slow to answer questions, does not appear to be in any pain. HEAD: Normocephalic, atraumatic EYES: Pupils equal, round and reactive to light, extraocular movements intact. ENT: Oral mucosa moist, tongue midline. NECK: Full range of motion, supple, trachea midline. LUNGS: Clear to auscultation bilaterally, no wheezes, rales or rhonchi, no respiratory distress. HEART: Regular rate and rhythm, no murmurs, gallops, rubs. ABDOMEN: Soft, nontender, nondistended, bowel sounds present in all 4 quadrants. EXTREMITIES: Moves all 4 extremities spontaneously however he has weakness in both his lower extremities, 4 out of 5 muscle strength in the right leg 3 out of 5 muscle strength in the left leg, 3-5 muscle strength in the left upper extremity, 5 out of 5 muscle strength in the right upper extremity, left upper extremity has a great deal of tremor. No edema, radial and dorsalis pedis pulses 2/4 bilaterally. No cyanosis. NEUROLOGICAL: Alert and oriented to person and place, disoriented to time, knows his age but does not know the month, speech is slightly slow but not slurred, no difficulty with word finding, no facial droop, has visual field cut to the lateral aspect of the left eye, no visual field cuts to the right eye, no facial droop. See NIH stroke scale. PSYCH: Normal mood, normal affect. SKIN: Warm, Dry, normal turgor, excoriations noted to the anterior shins. Course - Re-evaluation Re-evalutation: 11/18/18 19:24 CT scan does not reveal any acute process, it does show calcification from prior hemorrhage. Review of the old records reveals hemorrhage versus tumor in the past. This means he is not a candidate for TPA as he has prior hemorrhage. 11/19/18 00:08 CT of the head and neck does not reveal any large vessel occlusion, during the initial scan he vomited so we had to repeat the scan after giving Zofran, patient has been having occasional tremors however approximately 15 minutes ago was called into the room because he was having a tonic-clonic seizure, bit his tongue, the tonic-clonic seizure lasted approximately a minute and then after that he remained with his eyes deviated up into the left and clenching his jaw for approximately another 2 minutes, treated with Ativan 2 mg IV as well as 1 g of Keppra, the seizure has stopped and his eyes are no longer deviated, jaws no longer clenched however he is postictal. Not responding at this time. Patient has never had a seizure before. At this time I will initiate transfer to a [facility] where they have neurology. Sister is in agreement with this plan. 11/19/18 00:09 CBC shows leukocytosis of 12.6, coags normal, CMP grossly unremarkable, chest x- ray unremarkable, 11/19/18 00:[address] Cisneros the stroke neurologist on-call at [facility], states the patient should be an [facility] ED transfer as he is not certain whether or not this patient truly had a stroke and also that he needs to be assessed to see if he is in status epilepticus. Discussed case with Dr. Tomer Chand who agrees to accept the patient to the ER as an ED to ED transfer. Dr. Cisneros is also recom mended giving another 2 g of Keppra which has been ordered. I did recheck the patient and at this time the patient is now withdrawing from painful stimuli however he is still not following commands. Patient still appears to be postictal. 11/19/18 01:42 Patient now has a rectal fever. See nursing notes for exact temperature. [facility] is at the bedside. No lumbar puncture will be undertaken at this time as I do not want to delay transfer to [facility]. After further assessment there they can decide whether or not they were concerned for possible meningitis causing his focal neurologic deficits. Right now I have fairly low suspicion actually for meningitis or encephalitis as he was not having a headache, he was not having any neck pain and he had an NIH of 11. - Vital Signs Vital signs: Temp Pulse Resp BP Pulse Ox 97.6 F 102 H 20 123/59 L 98 11/18/18 18:48 11/19/18 00:30 11/19/18 00:30 11/19/18 00:30 11/19/18 00:30 - Laboratory Result Diagrams: 11/18/18 19:00 11/18/18 19:00 Laboratory results interpreted by me: 11/18/18 11/18/18 19:00 19:37 WBC 12.6 H RDW 15.2 H Lymph % (Auto) 8.1 L Absolute Neuts (auto) 10.6 H Seg Neutrophils % 84.2 H POC Glucose 114 H - EKG Interpretation by Me Additional EKG results interpreted by me: 11/19/18 00:43 EKG shows sinus tachycardia at a rate of 99, 1 PVC, right bundle branch block, some ST segment depression noted in V2 and V3, no ST segment elevations, left axis deviation per my interpretation. Repeat EKG performed on 11/19/2018 at 0020 shows sinus tachycardia at a rate of 106, incomplete right bundle branch block, left posterior fascicular block, continued mild ST segment depression in V2 and V3 unchanged from prior EKG, no ST segment elevation per my interpretation. Critical Care Note - Critical Care Note Total time excluding time spent on procedures (mins): 55 Discharge - Discharge Clinical Impression: Seizure CVA (cerebral vascular accident) Qualifiers: CVA mechanism: unspecified Qualified Code(s): I63.9 - Cerebral infarction, unspecified Fever Qualifiers: Fever type: unspecified Qualified Code(s): R50.9 - Fever, unspecified Condition: Serious Disposition: Replaced By [facility] Referrals: KIKI BECK NP [Primary Care Provider] - Follow up as needed ED NIH Stroke Scale - NIH Stroke Scale When completed:: Before Alteplase *: 1. NIH scale should be completed with appropriate accompanying assessment tools. *: 2. The NIH should reflect what the patient is capable of doing and should not be coached by the clinician. 1a. Level of Consciousness: 0=Alert;keenly responsive -: 1=Drowsy -: 2=Obtunded -: 3=Coma/unresponsive or reflex to noxious stimuli. 1a. Responses: 0 1b. Orientation Questions: a. What month is it? -: b. How old are you? -: 0=Answers both questions correctly. -: 1=Answers one question correctly or patient is intubated or has orotracheal trauma. -: 2=Answers neither question correctly. 1b. Responses: 1 1c. Response to commands: a. Open and close eyes? -: b. Hospice Volunteer and release hand? -: Credit is given despite weakness. Demonstration of task is permitted. Substitute command if hands cannot be used. -: 0=Performs both tasks correctly -: 1=Performs one task correctly -: 2=Performs neither task correctly 1c. Responses: 0 2. Gaze: Establish eye contact and instruct patient to "Follow my finger" -: 0=Normal -: 1=Partial gaze palsy. Gaze is abnormal in one or both eyes, but where forced deviation or total gaze paresis is not present. -: 2=Forced deviation or total gaze paresis. 2. Responses: 0 3. Visual Cardenas: Sees fingers in all four quadrants. -: 0=No visual loss. -: 1=Partial hemianopsia. -: 2=Complete hemianopsia. -: 3=Bilateral hemianopsia (including Cortical blindness) 3. Responses: 1 - Left eye lateral hemianopsia. 4. Facial Movement: Instruct patient to: -: a. Show me your teeth -: b. Raise your eyebrows -: c. Close your eyes -: d. Smile -: 0=Normal symmetrical movement -: 1=Minor paralysis (flattened nasolabial fold, asymmetry on smiling). -: 2=Partial paralysis (total or near total paralysis of lower face). -: 3=Complete paralysis of upper and lower face 4. Responses: 0 5. Motor functions (left arm): Alternate sides and extend each arm with palms down (90 degrees if sitting or 45 degrees for supine). -: 0=No drift;limb holds for full 10 seconds. -: 1=Drift; limb holds but drifts down before full 10 seconds, but does not hit bed. -: 2=Some effort against gravity; limb cannot get to or maintain position. -: 3=No effort against gravity; limb falls. -: 4=No movement. -: UN=Amputation, joint fusion, explain in comments. 5. Responses (left arm): 2 5. Motor Functions (right arm): Alternate sides and extend each arm with palms down (90 degrees if sitting or 45 degrees for supine). -: 0=No drift;limb holds for full 10 seconds. -: 1=Drift; limb holds but drifts down before full 10 seconds, but does not hit bed. -: 2=Some effort against gravity; limb cannot get to or maintain position. -: 3=No effort against gravity; limb falls. -: 4=No movement. -: UN=Amputation, joint fusion, explain in comments. 5. Responses (right arm): 0 6. Motor Functions (left leg): With patient lying supine, alternate sides and extend each leg (30 degrees always while supine). -: 0=No drift, leg holds position for full 5 seconds -: 1=Drift; leg falls before full 5 seconds but does not hit bed. -: 2=Some effort against gravity, leg falls to bed but some effort against gravity. -: 3=No effort against gravity, leg falls to bed immediately. -: 4=No movement. -: UN=Amputation, joint fusion; explain in comments. 6. Responses (left leg): 3 6. Motor Functions (right leg): With patient lying supine, alternate sides and extend each leg (30 degrees always while supine). -: 0=No drift, leg holds position for full 5 seconds -: 1=Drift; leg falls before full 5 seconds but does not hit bed. -: 2=Some effort against gravity, leg falls to bed but some effort against gravity. -: 3=No effort against gravity, leg falls to bed immediately. -: 4=No movement. -: UN=Amputation, joint fusion; explain in comments. 6. Responses (right leg): 3 7. Limb Ataxia: With eyes open instruct patient to: -: a. "Touch your finger to your nose". -: b. "Touch your heel to your duenas" -: 0=Absent -: 1=Present in one limb. -: 2=Present in two limbs. -: UN=Amputation or joint fusion; explain in comments. 7. Responses: 1 7. If ataxia present choose as appropriate: Left arm 8. Sensory: Test sensation using pinprick or noxious stimuli. Test as many body parts as possible. -: 0=Normal;no sensory loss -: 1=Mile to moderate sensory loss (patient feels pin prick but is less sharp on affected side). -: 2=Severe or total sensory loss. 8. Responses: 0 9. Best Language: Instruct patient to: -: a. "Describe what you see in this picture." -: b. "Name the items in this picture." -: c. "Read these sentences." -: 0=No aphasia, normal -: 1=Mild to moderate aphasia. -: 2=Severe aphasia -: 3=Mute, global aphasia, no usable speech or auditory comprehension. 9. Responses: 0 10. Articulation, Dysarthia: Instruct patient to: -: "Read these words" or "Repeat these words" -: 0=Normal -: 1=Mild to moderate; patient may slur some words but can be understood without difficulty. -: 2=Severe; patients speech so slurred as to be unintelligible in the absence of dysphasia. -: UN=Intubated or other physical barrier, explain in comments. 10. Responses: 0 11. Extinction or inattention: 0=No abnormality -: 1= Visual, tactile, auditory, spatial, or personal inattention or extinction to bilateral simulation in one or the sensory modalities. -: 2=Profound ken-inattention or ken-inattention to more than one modality; does not recognize own hand. 11. Responses: 0 Total Score: 11 ED Alteplase Inc/Exc Criteria - Date/Time patient last known well: Date/Time: 11/18/18 16:30 - Date/Time patient arrived in ED: _: 11/18/18 17:44 - Inclusion Criteria: 1: Patient presented to ED within 3 hours of acute ischemic stroke symptom onset? -: Yes 2: Did baseline CT exclude intracranial hemorrhage and/or other risk factors? -: Yes 3: Is the age of the patient 18 years of age or greater? -: Yes : If any of the above questions are answered "NO" then stop, patient is not a candidate for Alteplase, : If all of the above questions are answered "YES" then continue with Exclusion Criteria. - Exclusion Criteria: 1: Is there evidence of intracranial hemorrhage on baseline CT? -: No 2: Is there suspicion of subarachnoid hemorrhage (even if CT negative)? -: No 3: Is there a history of serious head trauma, recent previous stroke or UT wi thin 3 months? -: No 4: Does the patient have a clinical presentation consistent with UT or post-UT pericarditis? -: No 5: Is there history of intracranial hemorrhage? -: Yes 6: On repeated measurement is Systolic BP greater than 185mmHg or Diastolic BP greater that 110 mmHg and is aggressive treatment needed to reduce blood pressure to these limits (e.g. constant infusion of an anti-hypertensive)? -: No 7: Did the patient awake with stroke symptoms? -: No 8: Has the patient had a lumbar puncture or an arterial puncture at a non- compressile site within 7 days? -: No 9: With in the last 14 days did the patient have surgery or major trauma? -: No 10: Is the patient or less than 2 weeks? -: No 11: Was there any active bleeding or acute trauma? -: No 12: Does the patient have intracranial neoplasm, arteriovenous malformation or aneurysm? -: No 13: Does the patient have abnormal glucose (less than 50 or greater than 400mg/dl)? Record glucose in Comment. -: No 14: Patient has rapidly improving symptoms at the time Alteplase is to be Administered. -: No 15: Does the patient have any risks for bleeding, including but not limited to: a.: Current use of Coumadin with PT greater than 15 seconds or INR greater than 1.7. b.: Current use of Pradaxa (Dabigatran). c.: Heparin administereed within the past 48 hours and PTT elevated. d.: Platelet count less than 100,000/mm. e.: Major surgery or serious trauma within 14 days. f.: Gastrointestinal or gynecological urinary bleeding within 14 days. g.: Myocardial Infarction (UT) within 3 months. : If the answer to any of the above questions is "YES" then stop, the patient is not a candidate for Alteplase. : If the answer to all of the above questions is "NO" then the patient may be eligible for the Administration of Alteplase. : If the patient is noted to have seizure activity at onset of Stroke symptoms; Consult Neurologist for further evaluation. - The patient is: -: Included and is eligible to receive Alteplase. *Initiate bed placement at higher level of care* Reviewed risks & benefits of thrombolytic therapy: I have reviewed the risks and benefits of thrombolytic therapy with the patient and/or his/her family. -: Excluded and not eligible to receive Alteplase for the above exclusions. -: Excluded and not eligible to receive Alteplase for other reasons (specify in comments): - Diagnosis of TIA: -: Patient presented with transient symptoms that are now resolved and no other neurologic findings are currently present. List symptoms in comments. -: Patient is NOT a candidate for tPA. -: ____(put name in comment) has been consulted for admission and continued evaluation of risk factor assessment.
--- NOTE | 2018-11-18 18:53 | RADIOLOGY REPORT (SQ) ---
EXAM DESCRIPTION: CHEST SINGLE VIEW COMPLETED DATE/TIME: 11/18/2018 6:40 pm REASON FOR STUDY: stroke, left sided weakness COMPARISON: 08/13/2018 NUMBER OF VIEWS: One view. TECHNIQUE: Single frontal radiographic image of the chest acquired. LIMITATIONS: None. FINDINGS: LUNGS AND PLEURA: Stable appearance. MEDIASTINUM AND HILAR STRUCTURES: Stable heart size and mediastinal structures. HEART AND VASCULAR STRUCTURES: Stable appearance. SUPPORT DEVICES: Appropriate location without change. BONES: No acute findings. OTHER: No other significant finding. IMPRESSION: STABLE APPEARANCE OF THE CHEST. SUPPORT DEVICES UNCHANGED. TECHNICAL DOCUMENTATION: JOB ID: [id number] [employer]- All Rights Reserved Reading location - IP/workstation name: [email or web address]
--- NOTE | 2018-11-18 18:55 | RADIOLOGY REPORT (SQ) ---
EXAM DESCRIPTION: CT HEAD WITHOUT COMPLETED DATE/TIME: 11/18/2018 6:39 pm REASON FOR STUDY: stroke, left sided weakness COMPARISON: MR 08/13/2018 CT 08/13/2018 TECHNIQUE: Axial images acquired through the brain without intravenous contrast. Images reviewed wi th bone, brain and subdural windows. Additional sagittal and coronal reconstructions were generated. Images stored on PACS. All CT scanners at this facility use dose modulation, iterative reconstruction, and/or weight based d osing when appropriate to reduce radiation dose to as low as reasonably achievable (ALARA). [facility]: Dose Right [facility]: CareDose [facility]: Dose Right [facility]: Teradose 4D [facility]: [employer] RADIATION DOSE: CT Rad equipment meets quality standard of care and radiation dose reduction techniq ues were employed. CTDIvol: 53.2 mGy. DLP: 1017 mGy-cm. mGy. LIMITATIONS: None. FINDINGS: VENTRICLES: Normal size and contour. CEREBRUM: No masses. No hemorrhage. No midline shift. There is a very small area of increased atte nuation in the right posterior parietal region that is stable. This likely represents calcification from a prior hemorrhage. No evidence for acute infarction. Normal estrada/white matter differentiation. No areas of low density in the white matter. CEREBELLUM: No masses. No hemorrhage. No alteration of density. No evidence for acute infarction. EXTRAAXIAL SPACES: No fluid collections. No masses. ORBITS AND GLOBE: No intra- or extraconal masses. Normal contour of globe without masses. CALVARIUM: No fracture. PARANASAL SINUSES: No fluid or mucosal thickening. SOFT TISSUES: No mass or hematoma. OTHER: No other significant finding. IMPRESSION: NO ACUTE INTRACRANIAL IMAGING FINDINGS. EVIDENCE OF ACUTE STROKE: NO. COMMENT: Pertinent positive or negative findings of the imaging study reported as a CRITICAL EXAM shruti KRAFT DO at18:49 on 11/18/2018. Category of Critical Exam: Stroke protocol Quality ID # [id number]: Final reports with documentation of one or more dose reduction techniques (e.g., Au tomated exposure control, adjustment of the mA and/or kV according to patient size, use of iterative reconstruction technique) TECHNICAL DOCUMENTATION: JOB ID: [id number] [employer]- All Rights Reserved Reading location - IP/workstation name: [email or web address]
[2018-11-18 19:24] LABS: ABSOLUTE BASOPHILS # (AUTO) 0.1 10^3/uL (0.0-0.2); ABSOLUTE EOSINOPHILS # (AUTO) 0.1 10^3/uL (0.0-0.6); ABSOLUTE MONOCYTES (AUTO) 0.7 10^3/uL (0.1-1.4); ABSOLUTE NEUT (AUTO) 10.6 10^3/uL (1.7-8.2); HEMATOCRIT 45.5 % (37.9-51.0); HEMOGLOBIN 15.4 g/dL (13.5-17.0); LYMPHOCYTES % (AUTO) 8.1 % (13-45); MEAN CORPUSCULAR HEMOGLOBIN 27.8 pg (27.0-33.4); MEAN CORPUSCULAR HGB CONC 33.8 g/dL (32.0-36.0); MEAN CORPUSCULAR VOLUME 82 fl (80-97); MONOCYTES % (AUTO) 5.7 % (3-13); PLATELET COUNT 241 10^3/uL (150-450); RED BLOOD COUNT 5.53 10^6/uL (4.35-5.55); RED CELL DISTRIBUTION WIDTH 15.2 % (11.5-14.0); SEGMENTED NEUTROPHILS % (AUTO) 84.2 % (42-78); TOTAL CELLS COUNTED % (AUTO) 100 %; WHITE BLOOD COUNT 12.6 10^3/uL (4.0-10.5)
[2018-11-18 19:28] LABS: INTERNATIONAL RATION (INR) 0.86
[2018-11-18 19:37] LABS: PARTIAL THROMBOPLASTIN TIME 30.6 SEC (23.5-35.8); PROTHROMBIN TIME 11.7 SEC (11.4-15.4)
[2018-11-18 19:40] LABS: ALKALINE PHOSPHATASE 85 U/L (38-126); ANION GAP 8 (5-19); ASPARTATE AMINO TRANSFERASE 34 U/L (17-59); BILIRUBIN,DIRECT 0.1 mg/dL (0.0-0.4); BILIRUBIN,TOTAL 0.5 mg/dL (0.2-1.3); BLOOD UREA NITROGEN 16 mg/dL (7-20); CARBON DIOXIDE 29 mmol/L (22-30); CHLORIDE 102 mmol/L (98-107); CREATINE KINASE 160 U/L (55-170); GLUCOSE 99 mg/dL (75-110); TOTAL PROTEIN 6.8 g/dL (6.3-8.2)
[2018-11-18 19:52] LABS: CREATINE KINASE MB 1.01 ng/mL (<4.55)
[2018-11-18 19:53] LABS: TROPONIN I < 0.012 ng/mL
[2018-11-18] MEDS ORDERED: NORMAL SALINE 1000 ML 1,000 ML IV ONE (21:51)
[2018-11-18] MEDS ORDERED: ONDANSETRON HCL INJ/PF 4 MG/2 ML SDV IV ONE (21:51)
[2018-11-18] MEDS ORDERED: LORAZEPAM INJ 2 MG/1 ML VIAL ONE (23:37)
[2018-11-18] MEDS ORDERED: LEVETIRACETAM 1000 MG/NACL-ISO 1,000 MG/100 ML RTUPB IV ONE ×2 (23:44→23:51)
[2018-11-18] MEDS ORDERED: LORAZEPAM INJ 2 MG/1 ML VIAL IV ONE (23:50)
--- NOTE | 2018-11-18 23:57 | RADIOLOGY REPORT (SQ) ---
EXAM DESCRIPTION: CT HEAD ANGIOGRAPHY WITHOUT THEN WITH IV CONTRAST, CT NECK ANGIOGRAPHY WITHOUT THEN WITH IV CONTRAST COMPLETED DATE/TME: 11/18/2018 19:47 CLINICAL HISTORY: 63 years Male, CVA, look for LVO Comparison: None. Technique: IV contrast. Coronal and sagittal reformat. No 3d reconstruction. This exam was performed according to our departmental dose-optimization program, which includes automated exposure control, adjustment of the mA and/or kV according to patient size and/or use of iterative reconstruction technique. [facility]: Dose Right [facility]: CareDose [facility]: Dose Right [facility]: Teradose 4D [facility]: [employer] LIMITATIONS: No 3-D/MIPS reformat. Findings: CTA, head: No large vessel occlusion. Intact [place]. No aneurysm. No vasculitides. CTA, neck: No internal carotid arterial stenosis/occlusion based on NASCET (or similar) criteria. Intact carotid and vertebral arterial system. Other: Degenerative disc disease. Spondylosis. Impression: No acute findings. Limitation.
--- NOTE | 2018-11-18 23:57 | RADIOLOGY REPORT (SQ) ---
EXAM DESCRIPTION: CT HEAD ANGIOGRAPHY WITHOUT THEN WITH IV CONTRAST, CT NECK ANGIOGRAPHY WITHOUT THEN WITH IV CONTRAST COMPLETED DATE/TME: 11/18/2018 19:47 CLINICAL HISTORY: 63 years Male, CVA, look for LVO Comparison: None. Technique: IV contrast. Coronal and sagittal reformat. No 3d reconstruction. This exam was performed according to our departmental dose-optimization program, which includes automated exposure control, adjustment of the mA and/or kV according to patient size and/or use of iterative reconstruction technique. [facility]: Dose Right [facility]: CareDose [facility]: Dose Right [facility]: Teradose 4D [facility]: [employer] LIMITATIONS: No 3-D/MIPS reformat. Findings: CTA, head: No large vessel occlusion. Intact [place]. No aneurysm. No vasculitides. CTA, neck: No internal carotid arterial stenosis/occlusion based on NASCET (or similar) criteria. Intact carotid and vertebral arterial system. Other: Degenerative disc disease. Spondylosis. Impression: No acute findings. Limitation.
[2018-11-19] MEDS ORDERED: NORMAL SALINE 1000 ML 1,000 ML IV ONE (00:08)
[2018-11-19 00:17] VITALS: BP 123/59
[2018-11-19] MEDS ORDERED: LEVETIRACETAM 1000 MG/NACL-ISO 1,000 MG/100 ML RTUPB IV ONE ×2 (00:28)
[2018-11-19] MEDS ORDERED: ACETAMINOPHEN 650 MG SUPP.RECT PR ONE (01:41)
--- NOTE | 2018-11-19 07:52 | EKG REPORT ---
SEVERITY:- ABNORMAL ECG - SINUS TACHYCARDIA VENTRICULAR PREMATURE COMPLEX RIGHT BUNDLE BRANCH BLOCK : Confirmed by: Tj Groves MD 19-Nov-2018 07:51:50
--- NOTE | 2018-11-19 07:52 | EKG REPORT ---
SEVERITY:- ABNORMAL ECG - SINUS TACHYCARDIA IRBBB AND LPFB PROBABLE INFERIOR INFARCT, OLD : Confirmed by: Tj Groves MD 19-Nov-2018 07:51:14
== END 2018-11-19 02:06 | disposition short-term general hospital (02) ==
LOC: ER 17:44
DX: I63.9 Cerebral infarction, unspecified (principal); R53.1 Weakness; R20.0 Anesthesia of skin; R41.0 Disorientation, unspecified; I10 Essential (primary) hypertension; R29.711 NIHSS score 11; R56.9 Unspecified convulsions; R50.9 Fever, unspecified; D72.829 Elevated white blood cell count, unspecified; R11.10 Vomiting, unspecified; R00.0 Tachycardia, unspecified; I45.2 Bifascicular block; J44.9 Chronic obstructive pulmonary disease, unspecified; Z79.02 Long term (current) use of antithrombotics/antiplatelets; Z88.8 Allergy status to other drugs, medicaments and biological substances; Z88.0 Allergy status to penicillin; Z87.891 Personal history of nicotine dependence
CPT/HCPCS: 93005 ×2; 36415; 82553; 82962; 82550; 85025; 85610; 85730; 80053; 84484; 71045; 70450; 70496; 70498; 93010 ×2; A9270; J2060; J2405; J7030 ×2; J1953 ×2; 96361; 96365; 96375; 99291

== ENCOUNTER 2019-01-13 14:48 | Emergency (ER) | payer MEDICARE, MEDICAID ==
--- NOTE | 2019-01-13 16:34 | ER Document Report ---
ED General - General Chief Complaint: General Weakness Stated Complaint: GENERAL WEAKNESS Time Seen by Provider: 01/13/19 15:49 Primary Care Provider: [facility] [Provider Group] - Follow up in 3-5 days KIKI BECK NP [Primary Care Provider] - Follow up in 3-5 days Notes: Patient is a 63-year-old male who present presents emergency department with a chief complaint of weakness. He was seen by his neurologist yesterday and he states that when he got home from the neurologist office he had increased shaking. Patient states that he feels like he has "priy-zld-fjdiaig in his fingertips." The fdkj-anb-ylssyrx sensation started shortly prior to getting picked up by EMS. He states that he has an EEG ordered from his neurologist for the weakness. Patient states that he walks the same as he normally does. Patient has a history of a CVA, TIA, hypertension, hyperlipidemia. Patient states that he is compliant with his medications. Patient's sister is not at bedside. Patient states that his sister knows more about medical history than he does. Will await for his sister for more information. (See Course) TRAVEL OUTSIDE OF THE [place] IN LAST 30 DAYS: No - Related Data Allergies/Adverse Reactions: aspirin Allergy (Verified 08/13/18 10:27) Penicillins Allergy (Verified 08/13/18 10:27) Past Medical History - Social History Smoking Status: Unknown if Ever Smoked Family History: Reviewed & Not Pertinent Patient has suicidal ideation: No Patient has homicidal ideation: No - Past Medical History Cardiac Medical History: Reports: Hx Hypercholesterolemia, Hx Hypertension Denies: Hx Congestive Heart Failure, Hx Heart Attack Pulmonary Medical History: Reports: Hx COPD Neurological Medical History: Denies: Hx Migraine Renal/ Medical History: Denies: Hx Peritoneal Dialysis Psychiatric Medical History: Reports: Hx Depression Past Surgical History: Reports: Hx Orthopedic Surgery - Knee Review of Systems - Review of Systems Notes: REVIEW OF SYSTEMS: CONSTITUTIONAL : Denies recent illness. Denies recent unintentional weight loss. Denies fever, chills, or sweats. EENT: Denies eye, ear, throat, or mouth pain, discharge, or symptoms. Denies nasal or sinus congestion. CARDIOVASCULAR: Denies chest pain. RESPIRATORY: Denies shortness of breath, cough, congestion, difficulty breathing, or wheezing. GASTROINTESTINAL: Denies nausea, vomiting, and diarrhea. Denies abdominal pain. Denies constipation. GENITOURINARY: Denies difficulty urinating, burning, blood in urine, urgency or frequency. MUSCULOSKELETAL: Denies neck and back pain. Denies joint pain or swelling. SKIN: Denies rash, itchiness, or lesions HEMATOLOGIC : Denies easy bruising or bleeding. LYMPHATIC: Denies swollen, painful, enlarged glands. NEUROLOGICAL: See HPI. PSYCHIATRIC: Denies stress, anxiety, alteration in sleep patterns, or depression. All other systems reviewed and negative. Physical Exam - Vital signs Vitals: Temp Pulse Resp BP Pulse Ox 97.8 F 73 17 119/77 98 01/13/19 14:49 01/13/19 14:49 01/13/19 14:49 01/13/19 14:49 01/13/19 14:49 - Notes Notes: PHYSICAL EXAMINATION: GENERAL: Appears well, healthy, well-nourished, no acute distress. HEAD: Normocephalic, atraumatic. EYES: PERRL, conjunctiva normal, all extraocular movements intact, sclera nonicteric ENT: Moist mucous membranes. NECK: Supple, no noticeable swelling, redness, rash. Normal range of motion. LUNGS: Equal breath sounds bilaterally and clear to auscultation. No wheezes rales or rhonchi. CARDIOVASCULAR: S1-S2, regular rate, regular rhythm. Radial pulses 2+, normal. ABDOMEN: Normoactive bowel sounds. Soft, nontender, no guarding, no rebound tenderness, and no masses palpated. EXTREMITIES: Normal strength and range of motion, no pitting or edema. No cyanosis. NEUROLOGICAL: Moves all extremities upon command. Slight weakness in the left side, consistent with his previous stroke. Tremor like movements noted. PSYCH: Normal mood, normal affect. SKIN: Warm, dry. No rash, lesions, ulcerations noted. Normal skin turgor. Course - Re-evaluation Re-evalutation: 01/14/19 20:10 Hematology shows a mild leukocytosis of 11,000. Chemistries are unremarkable. Urinalysis is also unremarkable. CT of the head shows no evidence of any acute infarction or hemorrhagic stroke. There are stable areas of calcification according to the radiologist read. At the very low suspicion of the patient having an acute stroke, as the patient is awake and alert and does not have any weakness on the right side. He has residual weakness on the left, which is cons istent with his previous stroke. Patient states that his sister is on the way. I will discussed these findings with her when she arrives. 01/13/19 21:02 Patient's sister came to bedside and gave me further information about the patient. The patient has had toothache for the past few months. She brought this to my attention. Patient was supposed to see the dentist, but did not because he was hospitalized a month ago. Patient has not rescheduled his appointment. I have advised the patient to follow-up with his dentist, primary care provider, and neurologist. Patient states that his headache is much better after receiving Tylenol. He is in agreement with this plan. Follow-up precauti ons were given. Verbal discharge instructions were given to the patient. They verbalized understanding. They are stable for discharge. 1 - Vital Signs Vital signs: Temp Pulse Resp BP Pulse Ox 97.6 F 57 L 22 H 136/84 H 97 01/13/19 21:20 01/13/19 21:20 01/13/19 21:20 01/13/19 21:20 01/13/19 21:20 - Laboratory Result Diagrams: 01/13/19 14:58 01/13/19 14:58 Laboratory results interpreted by me: 01/13/19 14:58 WBC 11.0 H RBC 5.69 H RDW 15.4 H Discharge - Discharge Clinical Impression: Tooth pain Headache Qualifiers: Headache type: unspecified Headache chronicity pattern: unspecified pattern Intractability: not intractable Qualified Code(s): R51 - Headache Condition: Stable Disposition: HOME, SELF-CARE Instructions: Clindamycin ([facility]), Toothache ([facility]) Additional Instructions: You are seen today in the emergency department for a headache and tingling in your fingers. Your CT, EKG, x-ray, and your labs are reassuring. You are being started on antibiotics for your tooth pain. Please follow-up with your dentist in regards to this visit. Please call them tomorrow to make an appointment for next week. If you develop a fever, have worsening symptoms, or if any symptoms that are worrisome to you, please return to the emergency department. Prescriptions: Clindamycin HCl [Cleocin 150 mg Capsule] 300 mg PO Q6 7 Days #56 capsule Referrals: KIKI BECK NP [Primary Care Provider] - Follow up in 3-5 days [facility] [Provider Group] - Follow up in 3-5 days
[2019-01-13 17:43] LABS: APPEARANCE,URINE SLIGHTLY-CLOUDY; BILIRUBIN,URINE NEGATIVE (NEGATIVE); COLOR,URINE AMBER; GLUCOSE, URINE NEGATIVE (NEGATIVE); KETONES,URINE NEGATIVE (NEGATIVE); LEUKOCYTE ESTERASE,URINE NEGATIVE (NEGATIVE); NITRITE,URINE NEGATIVE (NEGATIVE); PROTEIN,URINE NEGATIVE (NEGATIVE); URINE SPECIFIC GRAVITY 1.019; UROBILINOGEN,URINE NEGATIVE mg/dL (<2.0)
--- NOTE | 2019-01-13 17:52 | RADIOLOGY REPORT (SQ) ---
EXAM DESCRIPTION: CT HEAD WITHOUT COMPLETED DATE/TIME: 01/13/2019 5:06 pm REASON FOR STUDY: weakness COMPARISON: 11/18/2018 TECHNIQUE: Axial images acquired through the brain without intravenous contrast. Images reviewed wi th bone, brain and subdural windows. Additional sagittal and coronal reconstructions were generated. Images stored on PACS. All CT scanners at this facility use dose modulation, iterative reconstruction, and/or weight based d osing when appropriate to reduce radiation dose to as low as reasonably achievable (ALARA). [facility]: Dose Right [facility]: CareDose [facility]: Dose Right [facility]: Teradose 4D [facility]: Smart Pinkdingo RADIATION DOSE: CT Rad equipment meets quality standard of care and radiation dose reduction techniq ues were employed. CTDIvol: 53.2 mGy. DLP: 937 mGy-cm. mGy. LIMITATIONS: None. FINDINGS: VENTRICLES: Normal size and contour. CEREBRUM: No masses. No hemorrhage. Once again there is a stable small area of calcification in the right posterior parietal region. No significant interval change. No midline shift. No evidence fo r acute infarction. Normal estrada/white matter differentiation. No areas of low density in the white ma tter. CEREBELLUM: No masses. No hemorrhage. No alteration of density. No evidence for acute infarction. EXTRAAXIAL SPACES: No fluid collections. No masses. ORBITS AND GLOBE: No intra- or extraconal masses. Normal contour of globe without masses. CALVARIUM: No fracture. PARANASAL SINUSES: No fluid or mucosal thickening. SOFT TISSUES: No mass or hematoma. OTHER: No other significant finding. IMPRESSION: Stable small area of cortical calcification as described. This is not felt to represent hemorrhage. The appearance is exactly the same as on the prior CT. No acute intracranial imaging f inding. EVIDENCE OF ACUTE STROKE: NO. COMMENT: Quality ID # [id number]: Final reports with documentation of one or more dose reduction techniques (e.g., Automated exposure control, adjustment of the mA and/or kV according to patient size, use of iterative reconstruction technique) TECHNICAL DOCUMENTATION: JOB ID: [id number] [employer]- All Rights Reserved Reading location - IP/workstation name: [email or web address]
[2019-01-13] MEDS ORDERED: ACETAMINOPHEN 325 MG TABLET PO ONE (18:05)
[2019-01-13 18:12] LABS: ABSOLUTE BASOPHILS # (AUTO) 0.1 10^3/uL (0.0-0.2); ABSOLUTE EOSINOPHILS # (AUTO) 0.2 10^3/uL (0.0-0.6); ABSOLUTE LYMPHOCYTES (AUTO) 3.1 10^3/uL (0.5-4.7); ABSOLUTE NEUT (AUTO) 6.7 10^3/uL (1.7-8.2); BASOPHILS % (AUTO) 0.6 % (0-2); EOSINOPHILS % (AUTO) 1.6 % (0-6); HEMATOCRIT 46.8 % (37.9-51.0); HEMOGLOBIN 16.3 g/dL (13.5-17.0); MEAN CORPUSCULAR HEMOGLOBIN 28.6 pg (27.0-33.4); MEAN CORPUSCULAR HGB CONC 34.8 g/dL (32.0-36.0); MEAN CORPUSCULAR VOLUME 82 fl (80-97); MONOCYTES % (AUTO) 9.1 % (3-13); PLATELET COUNT 238 10^3/uL (150-450); RED BLOOD COUNT 5.69 10^6/uL (4.35-5.55); RED CELL DISTRIBUTION WIDTH 15.4 % (11.5-14.0); SEGMENTED NEUTROPHILS % (AUTO) 60.7 % (42-78); TOTAL CELLS COUNTED % (AUTO) 100 %
[2019-01-13 18:16] LABS: ALBUMIN 4.4 g/dL (3.5-5.0); ALKALINE PHOSPHATASE 83 U/L (38-126); ANION GAP 11 (5-19); ASPARTATE AMINO TRANSFERASE 26 U/L (17-59); BILIRUBIN,DIRECT 0.1 mg/dL (0.0-0.4); BILIRUBIN,TOTAL 0.6 mg/dL (0.2-1.3); BLOOD UREA NITROGEN 16 mg/dL (7-20); CALCIUM 9.9 mg/dL (8.4-10.2); CARBON DIOXIDE 27 mmol/L (22-30); CHLORIDE 103 mmol/L (98-107); GLUCOSE 84 mg/dL (75-110); POTASSIUM 4.1 mmol/L (3.6-5.0); TOTAL PROTEIN 7.5 g/dL (6.3-8.2)
[2019-01-13] MEDS ORDERED: CLINDAMYCIN HCL 150 MG CAPSULE PO ONE (21:02)
[2019-01-13 21:07] VITALS: BP 136/84
== END 2019-01-13 21:23 | disposition home or self-care (01) ==
LOC: ER 14:48
DX: K08.9 Disorder of teeth and supporting structures, unspecified (principal); R51 Headache; R53.1 Weakness; I10 Essential (primary) hypertension; E78.5 Hyperlipidemia, unspecified; J44.9 Chronic obstructive pulmonary disease, unspecified; Z88.6 Allergy status to analgesic agent; Z88.0 Allergy status to penicillin; Z86.73 Personal history of transient ischemic attack (TIA), and cerebral infarction without residual deficits
CPT/HCPCS: 99284; 36415; 85025; 80053; 81001; 70450; A9270 ×2

== ENCOUNTER → 2019-01-27 | Outpatient (CLI) | payer MEDICARE, MEDICAID ==
--- NOTE | 2019-01-27 13:26 | NEURO WORKBENCH EEG REPORT ---
EEG Report Patient: Duane Alex ID: [id number] Referring Doctor: Cesar Church MD DOS: 01/27/19 Medications: clindamycin, vitamin D2, B1, B12, multivitamins, Norvasc, Lipitor, Atrovent, Keppra, Effexor, megared, omega-3, krill oil, plavix History This is a 63 year old right handed man with a history of hypertension, COPD, stroke in April 2018, seizures since stroke (last seizure December 2018), high cholesterol, left knee surgery, congenital scoliosis, smoking history, chronic pain. This EEG was requested for seizures. EEG Interpretation This EEG was recorded in the awake and light drowsy states. The awake EEG is characterized by a moderately well-organized background with a moderately- developed and reactive posterior dominant rhythm of 8.5Hz. The remainder of the background consisted of a mix of alpha and beta. There were no significant asymmetries noted. Drowsiness was characterized by slowing of the background rhythms. Vertex waves were minimally developed but were seen in the midline head regions. Photic stimulation resulted in no significant changes. There were occasional poorly formed sharply contoured waveforms in the left, rarely on the right, posterior regions (temporal>central-parietal). These are potentially consistent with epileptiform sharp waves. There were no seizures. The EKG showed periods of an irregular rhythm. EEG Classification Sharp waves, L>R, posterior regions (T>C-P) EKG irregular rhythm EEG Impression This EEG is abnormal. The sharply contoured waveforms are potentially consistent with poorly formed sharp waves and may be suggestive of epileptiform foci in the left and possibly right posterior regions. Correlation with neuroimaging would be of interest. The EKG showed an irregular rhythm which may require further investigation. INTERPRETING NEUROLOGIST: Grecia Elias MD, FRCPC Board Certified in Neurology, with special qualification in Child Neurology, and in Clinical Neurophysiology [facility]
== END ==
LOC: NEURO 08:19
PROVIDERS: ATTEND Pediatrics
DX: R56.9 Unspecified convulsions (principal); E26.89 Other hyperaldosteronism
CPT/HCPCS: 95819

== ENCOUNTER 2019-04-13 17:48 | Emergency (ER) | payer MEDICARE, MEDICAID ==
[2019-04-13 18:55] LABS: INTERNATIONAL RATION (INR) 0.92; PROTHROMBIN TIME 12.3 SEC (11.4-15.4)
[2019-04-13 18:58] LABS: ABSOLUTE EOSINOPHILS # (AUTO) 0.1 10^3/uL (0.0-0.6); ABSOLUTE LYMPHOCYTES (AUTO) 1.6 10^3/uL (0.5-4.7); ABSOLUTE MONOCYTES (AUTO) 0.7 10^3/uL (0.1-1.4); ABSOLUTE NEUT (AUTO) 5.8 10^3/uL (1.7-8.2); BASOPHILS % (AUTO) 0.3 % (0-2); EOSINOPHILS % (AUTO) 1.5 % (0-6); HEMATOCRIT 49.5 % (37.9-51.0); HEMOGLOBIN 17.1 g/dL (13.5-17.0); LYMPHOCYTES % (AUTO) 19.2 % (13-45); MEAN CORPUSCULAR HEMOGLOBIN 28.6 pg (27.0-33.4); MEAN CORPUSCULAR HGB CONC 34.6 g/dL (32.0-36.0); MEAN CORPUSCULAR VOLUME 83 fl (80-97); MONOCYTES % (AUTO) 8.6 % (3-13); PLATELET COUNT 232 10^3/uL (150-450); RED CELL DISTRIBUTION WIDTH 14.5 % (11.5-14.0); SEGMENTED NEUTROPHILS % (AUTO) 70.4 % (42-78); TOTAL CELLS COUNTED % (AUTO) 100 %; WHITE BLOOD COUNT 8.2 10^3/uL (4.0-10.5)
[2019-04-13 19:01] LABS: ALKALINE PHOSPHATASE 81 U/L (38-126); ANION GAP 10 (5-19); ASPARTATE AMINO TRANSFERASE 32 U/L (17-59); BILIRUBIN,DIRECT 0.3 mg/dL (0.0-0.4); BILIRUBIN,TOTAL 0.5 mg/dL (0.2-1.3); BLOOD UREA NITROGEN 15 mg/dL (7-20); CALCIUM 9.2 mg/dL (8.4-10.2); CARBON DIOXIDE 25 mmol/L (22-30); CHLORIDE 103 mmol/L (98-107); GLUCOSE 96 mg/dL (75-110); POTASSIUM 4.2 mmol/L (3.6-5.0)
--- NOTE | 2019-04-13 19:16 | RADIOLOGY REPORT (SQ) ---
EXAM DESCRIPTION: CHEST SINGLE VIEW COMPLETED DATE/TIME: 04/13/2019 7:02 pm REASON FOR STUDY: htn COMPARISON: 11/18/2018 EXAM PARAMETERS: NUMBER OF VIEWS: One view. TECHNIQUE: Single frontal radiographic view of the chest acquired. RADIATION DOSE: NA LIMITATIONS: None. FINDINGS: LUNGS AND PLEURA: No opacities, masses or pneumothorax. No pleural effusion. MEDIASTINUM AND HILAR STRUCTURES: No masses. Contour normal. HEART AND VASCULAR STRUCTURES: Heart normal in size. Normal vasculature. BONES: No acute findings. HARDWARE: None in the chest. OTHER: No other significant finding. IMPRESSION: NO ACUTE RADIOGRAPHIC FINDING IN THE CHEST. TECHNICAL DOCUMENTATION: JOB ID: [id number] 2010 [employer]- All Rights Reserved Reading location - IP/workstation name: [email or web address]
--- NOTE | 2019-04-13 19:26 | ER Document Report ---
Entered by CHAY CORONADO SCRIBE 04/13/19 1838 Acting as scribe for:KALLIE BEAN DO ED General - General Chief Complaint: Arm Pain Stated Complaint: ARM PAIN/NUMBNESS Time Seen by Provider: 04/13/19 18:31 Primary Care Provider: KIKI BECK NP [Primary Care Provider] - Follow up as needed Information source: Patient, Relative - Sister Notes: 63-year-old male presents with sister to the emergency department complaining of left arm pain and numbness that began this morning. Patient describes that early this morning he was "sweating a lot" while sitting in bed and this diaphoresis has been happening for the past two days. Patient explains that when his nurse aid came to help him shower, he noticed left hand swelling and a "pain that shot up to my left shoulder". Patient states that this is the same symptom he had when he had his last stroke. Patient told the nurse aid to call EMS. Patient complains of cough and rhinorrhea. Patient denies fever, nausea, vomiting, diarrhea and sick contact. Nurse aid told paramedics that these symptoms are not new or different. Nurse aid explained that patient has been hyper concerned after recent CVA one year ago and TIA 5 months ago. TRAVEL OUTSIDE OF THE [place] IN LAST 30 DAYS: No - Related Data Allergies/Adverse Reactions: aspirin Allergy (Verified 08/13/18 10:27) Penicillins Allergy (Verified 08/13/18 10:27) Past Medical History - General Information source: Patient, Relative - Social History Smoking Status: Former Smoker Cigarette use (# per day): No Chew tobacco use (# tins/day): No Frequency of alcohol use: None Drug Abuse: None Lives with: Family - Sister and Nurse aid come to help during the day. Family History: Reviewed & Not Pertinent Patient has suicidal ideation: No Patient has homicidal ideation: No - Past Medical History Cardiac Medical History: Reports: Hx Hypercholesterolemia, Hx Hypertension Pulmonary Medical History: Reports: Hx COPD Neurological Medical History: Reports: Hx Cerebrovascular Accident - 2019 Psychiatric Medical History: Reports: Hx Depression Past Surgical History: Reports: Hx Orthopedic Surgery - Knee Review of Systems - Review of Systems Constitutional: See HPI, Diaphoresis. denies: Fever EENT: See HPI, Nose discharge Cardiovascular: No symptoms reported Respiratory: See HPI, Cough Gastrointestinal: See HPI. denies: Diarrhea, Nausea, Vomiting Genitourinary: No symptoms reported Male Genitourinary: No symptoms reported Musculoskeletal: See HPI, Other - Arm Pain Skin: No symptoms reported Hematologic/Lymphatic: No symptoms reported Neurological/Psychological: See HPI, Numbness - in left hand -: Yes All other systems reviewed and negative Physical Exam - Vital signs Vitals: Resp Pulse Ox 17 97 04/13/19 18:13 04/13/19 18:13 - Notes Notes: Physical Exam: General: Alert, appears well. Obese. HEENT: Normocephalic. Atraumatic. PERRL. Extraocular movements intact. Oropharynx clear. Neck: Supple. Non-tender. Respiratory: No respiratory distress. Clear and equal breath sounds bilaterally. Cardiovascular: Regular rate and rhythm. Abdominal: Non-tender. No distension. Normal Bowel Sounds. Back: No gross abnormalities. Extremities: Chronic left-sided 4/5 hemiparesis from previous CVA. Upper extremities: Normal ROM. Lower extremities: No edema. Normal ROM. Neurological: Normal cognition. AAOx4. Normal speech. Psychological: Normal affect. Normal Mood. Skin: Warm. Dry. Normal color. Course - Re-evaluation Re-evalutation: 04/13/19 20:46 MDM 63 year old male right handed with left hemiparesis and seizure disorder since cva in 04/2018. He developed left arm pain and tremor earlier and was concerned he may be having a stroke. No focal weakness. He has known left side neck pain and radiculopathy of left arm. Awaiting MRI of the cervical spine. Known disc disease in low back. No fever and no chest pain or other concerning symptoms. - Vital Signs Vital signs: Temp Pulse Resp BP Pulse Ox 98.1 F 84 23 H 112/69 95 04/13/19 18:29 04/13/19 18:29 04/13/19 20:00 04/13/19 18:29 04/13/19 20:00 - Laboratory Result Diagrams: 04/13/19 18:15 04/13/19 18:15 Laboratory results interpreted by me: 04/13/19 18:15 RBC 6.00 H Hgb 17.1 H RDW 14.5 H - Diagnostic Test Radiology reviewed: Reports reviewed - EKG Interpretation by Me EKG shows normal: Sinus rhythm - NSR RBBB REpolarization abnormality no st elevation or depression my interpretation. Discharge - Discharge Clinical Impression: Radiculopathy Qualifiers: Spinal region: cervicothoracic Qualified Code(s): M54.13 - Radiculopathy, cervicothoracic region Hypertension Qualifiers: Hypertension type: unspecified Qualified Code(s): I10 - Essential (primary) hypertension Hemiplegia affecting left nondominant side Qualifiers: Hemiplegia type: unspecified type Hemiplegia etiology: late effect of cerebro vascular disease Cerebrovascular disease type: cerebral infarction Qualified Code(s): I69.354 - Hemiplegia and hemiparesis following cerebral infarction affecting left non-dominant side Condition: Good Disposition: HOME, SELF-CARE Instructions: Neuropathy ([facility]), Radiculopathy ([facility]), High Blood Pressure ([facility]) Additional Instructions: Rest, take your medicine as directed. Keep your MRI appointment regarding your neck. Please return here for chest pain, shortness of breath, weakness that is new or different from previous weakness. Referrals: KIKI BECK, ASTHMA EDUCATOR [Primary Care Provider] - Follow up as needed I personally performed the services described in the documentation, reviewed and edited the documentation which was dictated to the scribe in my presence, and it accurately records my words and actions.
--- NOTE | 2019-04-13 20:10 | EKG REPORT ---
SEVERITY:- ABNORMAL ECG - SINUS RHYTHM RIGHT BUNDLE BRANCH BLOCK NONSPECIFIC ST-T CHANGES- INFERIOR LEADS : Confirmed by: Tj Groves MD 13-Apr-2019 20:09:52
--- NOTE | 2019-04-13 20:20 | RADIOLOGY REPORT (SQ) ---
CT HEAD WITHOUT IV CONTRAST EXAM DATE: 04/13/2019 6:33 PM SCISSORS GRINDER HISTORY: Dizziness/weakness. COMPARISON: 01/13/2019 TECHNIQUE: CT scan of the brain without IV contrast. This exam was performed according to our departmental dose-optimization program, which includes automated exposure control, adjustment of the mA and/or kV according to patient size and/or use of iterative reconstruction technique. FINDINGS: The ventricles, cisterns, and sulci are age-appropriate. Stable calcifications in the right posterior parietal. No evidence of acute infarction, intracranial hemorrhage, extra-axial fluid collection, or midline shift. No air-fluid levels are seen in the paranasal sinuses to suggest acute sinusitis. No depressed skull fracture. IMPRESSION: No acute intracranial findings.
[2019-04-13 21:41] VITALS: BP 123/83
== END 2019-04-13 21:41 | disposition home or self-care (01) ==
LOC: ER 17:48
DX: M54.13 Radiculopathy, cervicothoracic region (principal); I10 Essential (primary) hypertension; I69.354 Hemiplegia and hemiparesis following cerebral infarction affecting left non-dominant side; M79.602 Pain in left arm; R61 Generalized hyperhidrosis; R05 Cough; R20.0 Anesthesia of skin; J34.89 Other specified disorders of nose and nasal sinuses; E66.9 Obesity, unspecified; J44.9 Chronic obstructive pulmonary disease, unspecified; E78.00 Pure hypercholesterolemia, unspecified; Z88.6 Allergy status to analgesic agent; Z88.0 Allergy status to penicillin
CPT/HCPCS: 36415; 70450; 71045; 80053; 83735; 84443; 84484; 85025; 85610; 93005; 93010; 99285

== ENCOUNTER 2019-09-23 18:52 | Emergency (ER) | payer MEDICARE, MEDICAID ==
--- NOTE | 2019-09-23 19:00 | ER Document Report ---
ED General - General Stated Complaint: RIGHT FACIAL DROOP Time Seen by Provider: 09/23/19 18:59 Primary Care Provider: REESE FRANK MD [Primary Care Provider] - Follow up as needed TRAVEL OUTSIDE OF THE [place] IN LAST 30 DAYS: No - HPI Patient complains to provider of: tremors Notes: 64-year-old male presents with an episode of tremors possible chest pain. Patient had recent CVA was discharged home from [facility] about 2 weeks ago. Patient was at rehab today doing a great deal of physical therapy and Occupational Therapy. Got home he was shakier than normal Patient relates he felt a twinge or something in his chest that lasted only moments getting concerned. Patient now has no symptoms. He is back to his baseline with a mild tremor. Denies fever chills nausea vomiting or other symptoms - Related Data Allergies/Adverse Reactions: aspirin Allergy (Verified 09/23/19 19:00) Penicillins Allergy (Verified 09/23/19 19:00) Past Medical History - Social History Smoking Status: Unknown if Ever Smoked Family History: Reviewed & Not Pertinent - Past Medical History Cardiac Medical History: Reports: Hx Hypercholesterolemia, Hx Hypertension Denies: Hx Congestive Heart Failure, Hx Heart Attack Pulmonary Medical History: Reports: Hx COPD Neurological Medical History: Reports: Hx Cerebrovascular Accident - 2019. Denies: Hx Migraine Renal/ Medical History: Denies: Hx Peritoneal Dialysis Psychiatric Medical History: Reports: Hx Depression Past Surgical History: Reports: Hx Orthopedic Surgery - Knee Review of Systems - Review of Systems Notes: REVIEW OF SYSTEMS: CONSTITUTIONAL: -fevers, -chills EENT: -eye pain, -difficulty swallowing, -nasal congestion CARDIOVASCULAR: chest pain RESPIRATORY: -cough, -SOB GASTROINTESTINAL: -abdominal pain, -nausea, -vomiting, -diarrhea GENITOURINARY: -dysuria, -hematuria MUSCULOSKELETAL: -back pain, -neck pain SKIN: -rash or skin lesions. HEMATOLOGIC: -easy bruising or bleeding. LYMPHATIC: -swollen, enlarged glands. NEUROLOGICAL: tremors, worse then baseline tremor PSYCHIATRIC: -anxiety, -depression. ALL OTHER SYSTEMS REVIEWED AND NEGATIVE. Physical Exam - Vital signs Vitals: Temp Pulse Resp BP Pulse Ox 97.8 F 84 18 157/80 H 95 09/23/19 18:55 09/23/19 18:55 09/23/19 18:55 09/23/19 18:55 08/12/20 18:55 - Notes Notes: PHYSICAL EXAMINATION: GENERAL: Well-appearing, well-nourished and in no acute distress. HEAD: Atraumatic, normocephalic. EYES: Pupils equal round, sclera anicteric, conjunctiva are normal. ENT: Surgical mask in place. NECK: Normal range of motion, LUNGS: No respiratory Distress, normal chest rise EXTREMITIES: Normal range of motion, No cyanosis. NEUROLOGICAL: Cranial nerves grossly intact. Normal speech, PSYCH: Normal mood, normal affect. SKIN: Warm, Dry, Course - Re-evaluation Re-evalutation: 09/23/19 19:07 Appearing male in no acute distress, back to baseline. Patient did have recent CVA has a baseline tremor. He states his tremors were worse for a little while he had 20 of chest pain. All the symptoms occurred about 3 hours ago. Denies all symptoms Vital signs stable with a normal limits 09/23/19 20:40 Patient has no focal neurologic symptoms, no facial droop. Sisters at bedside states she was just extra shaky after physical rehab. Concerned. He is compliant with his Keppra. And only lasted for a few moments. 09/23/19 20:56 Patient's extensive lab work-up unremarkable preserve renal function, no profound hyperkalemia, negative troponin. EKG reassuring CT head negative chest x-ray negative. Patient be discharged home improved follow-up PCP and neurology - Vital Signs Vital signs: Temp Pulse Resp BP Pulse Ox 97.8 F 84 20 142/75 H 93 09/23/19 18:55 09/23/19 18:55 09/23/19 20:01 09/23/19 20:01 09/23/19 20:01 - Laboratory Result Diagrams: 09/23/19 19:04 09/23/19 20:05 Laboratory results interpreted by me: 09/23/19 20:05 Sodium 136.1 L BUN 21 H - EKG Interpretation by Me Additional EKG results interpreted by me: 09/23/19 19:16 Normal sinus rhythm 76 bpm, right bundle branch block, QRS prolongation, first- degree heart block Discharge - Discharge Clinical Impression: Occasional tremors Condition: Stable Disposition: HOME, SELF-CARE Referrals: REESE FRANK MD [Primary Care Provider] - Follow up as needed
[2019-09-23 19:14] LABS: ABSOLUTE BASOPHILS # (AUTO) 0.1 10^3/uL (0.0-0.2); ABSOLUTE EOSINOPHILS # (AUTO) 0.3 10^3/uL (0.0-0.6); ABSOLUTE LYMPHOCYTES (AUTO) 2.3 10^3/uL (0.5-4.7); ABSOLUTE MONOCYTES (AUTO) 1.1 10^3/uL (0.1-1.4); ABSOLUTE NEUT (AUTO) 6.3 10^3/uL (1.7-8.2); BASOPHILS % (AUTO) 0.7 % (0-2); EOSINOPHILS % (AUTO) 2.8 % (0-6); HEMATOCRIT 45.9 % (37.9-51.0); HEMOGLOBIN 16.2 g/dL (13.5-17.0); LYMPHOCYTES % (AUTO) 23.2 % (13-45); MEAN CORPUSCULAR HEMOGLOBIN 29.4 pg (27.0-33.4); MEAN CORPUSCULAR HGB CONC 35.4 g/dL (32.0-36.0); MEAN CORPUSCULAR VOLUME 83 fl (80-97); MONOCYTES % (AUTO) 10.9 % (3-13); PLATELET COUNT 252 10^3/uL (150-450); RED BLOOD COUNT 5.52 10^6/uL (4.35-5.55); SEGMENTED NEUTROPHILS % (AUTO) 62.4 % (42-78); TOTAL CELLS COUNTED % (AUTO) 100 %; WHITE BLOOD COUNT 10.1 10^3/uL (4.0-10.5)
--- NOTE | 2019-09-23 19:49 | RADIOLOGY REPORT (SQ) ---
EXAM DESCRIPTION: CT HEAD WITHOUT IMAGES COMPLETED DATE/TIME: 09/23/2019 7:39 pm REASON FOR STUDY: pain COMPARISON: 04/13/2019 TECHNIQUE: Axial images acquired through the brain without intravenous contrast. Images reviewed wi th bone, brain and subdural windows. Additional sagittal and coronal reconstructions were generated. Images stored on PACS. All CT scanners at this facility use dose modulation, iterative reconstruction, and/or weight based d osing when appropriate to reduce radiation dose to as low as reasonably achievable (ALARA). [facility]: Dose Right [facility]: CareDose [facility]: Dose Right [facility]: Teradose 4D [facility]: [employer] RADIATION DOSE: CT Rad equipment meets quality standard of care and radiation dose reduction techniq ues were employed. CTDIvol: 53.2 mGy. DLP: 1070 mGy-cm. mGy. LIMITATIONS: None. FINDINGS: VENTRICLES: Normal size and contour. CEREBRUM: No masses. No hemorrhage. No midline shift. No evidence for acute infarction. Normal gra y/white matter differentiation. No areas of low density in the white matter. CEREBELLUM: No masses. No hemorrhage. No alteration of density. No evidence for acute infarction. EXTRAAXIAL SPACES: No fluid collections. No masses. ORBITS AND GLOBE: No intra- or extraconal masses. Normal contour of globe without masses. CALVARIUM: No fracture. PARANASAL SINUSES: No fluid or mucosal thickening. SOFT TISSUES: No mass or hematoma. OTHER: No other significant finding. IMPRESSION: NO ACUTE INTRACRANIAL IMAGING FINDINGS. EVIDENCE OF ACUTE STROKE: NO. COMMENT: Quality ID # [id number]: Final reports with documentation of one or more dose reduction techniques (e.g., Automated exposure control, adjustment of the mA and/or kV according to patient size, use of iterative reconstruction technique) TECHNICAL DOCUMENTATION: JOB ID: [id number] 2010 [employer]- All Rights Reserved Reading location - IP/workstation name: [email or web address]
--- NOTE | 2019-09-23 19:50 | RADIOLOGY REPORT (SQ) ---
EXAM DESCRIPTION: CHEST SINGLE VIEW IMAGES COMPLETED DATE/TIME: 09/23/2019 7:41 pm REASON FOR STUDY: pain COMPARISON: 04/13/2019 EXAM PARAMETERS: NUMBER OF VIEWS: One view. TECHNIQUE: Single frontal radiographic view of the chest acquired. RADIATION DOSE: NA LIMITATIONS: None. FINDINGS: LUNGS AND PLEURA: No opacities, masses or pneumothorax. No pleural effusion. MEDIASTINUM AND HILAR STRUCTURES: No masses. Contour normal. HEART AND VASCULAR STRUCTURES: Heart normal in size. Normal vasculature. BONES: No acute findings. HARDWARE: None in the chest. OTHER: No other significant finding. IMPRESSION: NO ACUTE RADIOGRAPHIC FINDING IN THE CHEST. TECHNICAL DOCUMENTATION: JOB ID: [id number] 2010 [employer]- All Rights Reserved Reading location - IP/workstation name: [email or web address]
[2019-09-23 20:51] LABS: ALKALINE PHOSPHATASE 68 U/L (38-126); ANION GAP 6 (5-19); ASPARTATE AMINO TRANSFERASE 43 U/L (17-59); BILIRUBIN,TOTAL 0.5 mg/dL (0.2-1.3); BLOOD UREA NITROGEN 21 mg/dL (7-20); CARBON DIOXIDE 23 mmol/L (22-30); CHLORIDE 107 mmol/L (98-107); GLUCOSE 108 mg/dL (75-110); POTASSIUM 4.6 mmol/L (3.6-5.0)
[2019-09-23 20:52] LABS: BILIRUBIN,DIRECT 0.2 mg/dL (0.0-0.4); TOTAL PROTEIN 6.9 g/dL (6.3-8.2)
[2019-09-23] MEDS ORDERED: LORAZEPAM INJ 2 MG/1 ML VIAL IV ONE (21:01)
[2019-09-23 21:26] VITALS: BP 133/88
--- NOTE | 2019-09-24 15:19 | EKG REPORT ---
SEVERITY:- ABNORMAL ECG - SINUS RHYTHM RIGHT BUNDLE BRANCH BLOCK PROBABLE INFERIOR INFARCT, OLD : Confirmed by: Gio Shah MD 24-Sep-2019 15:19:11
== END 2019-09-23 21:27 | disposition home or self-care (01) ==
LOC: ER 18:52
DX: R25.1 Tremor, unspecified (principal); I10 Essential (primary) hypertension; R07.9 Chest pain, unspecified; I45.10 Unspecified right bundle-branch block; I44.0 Atrioventricular block, first degree; J44.9 Chronic obstructive pulmonary disease, unspecified; Z79.899 Other long term (current) drug therapy; Z88.8 Allergy status to other drugs, medicaments and biological substances; Z88.0 Allergy status to penicillin
CPT/HCPCS: 93005; 99285; 96374; 36415; 83735; 85025; 80076; 80048; 84484; 71045; 70450; 93010; J2060